=== PATIENT | male | born 1970 | race Caucasian/White ===

== ENCOUNTER → 2016-12-08 | Outpatient (CLI) | payer OTHER ==
[~2016-12-08] MED LIST: ADIPEX-P37.5 M2 PO; ALAVERT D-12 HO1 T12 PO; ALLOPURINOL1 POW; ALLOPURINOL300 MG PO; ALOGLIPTIN6.25 MG PO; AMOXICILLIN500 M3 PO; AMOXICILLIN500 MG PO; ANAPROX DS550 MG PO; ASPIR 8181 MG PO; ASPIRIN ENTERIC81 M1 PO; ATENOLOL25 MG PO; ATIVAN1 MG PO; AVPAK PRIMIDONE50 M1 PO; BACTRIM DS 8001 TAB PO; BACTROBAN OINT22 GM PO; BUSPAR15 MG PO; CATAFLAM50 MG PO; CELEXA20 MG PO; CELEXA40 MG PO; CLONAZEPAM1 MG PO; COLCHICINE0.5 MG PO; COLCHICINE0.6 MG PO; COLSALIDE IMPR0.6 MG PO; CYCLOBENZAPRINE10 MG PO; DAYPRO600 M1 PO; DEPO TESTOS200 MG/ML IM; DYRENIUM50 MG PO; FLEXERIL5 MG PO; FLONASE 0.05% 121 EA NAS; HYDROCODONE BIT1 T11 PO; IBUPROFEN PO; INDOCIN25 MG PO; INDOCIN50 MG PO; ISOSORBIDE30 MG PO; KEFLEX500 M1 PO; KEFLEX500 MG PO; LAMICTAL25 MG PO; LAMOTRIGINE25 M1 PO; LIPITOR10 MG PO; LIPITOR20 MG PO; LISINOPRIL20 MG PO; LOMOTIL 0.025 M1 TA1 PO; LOPRESSOR25 MG PO; LORAZEPAM0.5 MG PO; LOVAZA1 GM PO; Lopressor25 MG PO; MACROBID100 M1 PO; MEDROL DOSEPAK4 MG PO; METFORMIN HCL500 MG PO; METFORMIN1000 MG PO; METOPROLOL SR50 MG PO; MOTRIN800 MG PO; NAPROSYN500 MG PO; NEURONTIN600 MG PO; NITROSTAT0.4 MG SL; NKHM; NORCO 5-325 TA1 EACH PO; NORVASC10 MG PO; NORVASC2.5 MG PO; NORVASC5 MG PO; PERCOCET 325 MG1 TA7 PO; PHENERGAN25 M1 PO; PRAVACHOL40 MG PO; PRAVASTATIN SOD20 MG PO; PRAVASTATIN SOD40 MG PO; PREDNICOT20 MG PO; PREDNISONE PO; PRILOSEC20 MG PO; PROTONIX TR40 MG PO; PROTONIX40 MG PO; ROBAXIN500 MG PO; SERTRALINE HYDR50 MG PO; TAMIFLU 75MG CA75 MG PO; TOPROL XL50 MG PO; TORADOL10 MG PO; TOUJEO300 U/ML SC; TRAMADOL HCL50 MG PO; TRAZODONE50 MG PO; ULTRAM50 MG PO; VIBRAMYCIN100 MG PO; VICODIN 5/500 505 MG PO; VICODIN 500 MG-1 TAB PO; VICODIN ES 7501 TAB PO; VITAMIN D33000 UNIT PO; VOLTAREN50 M1 PO; ZANTAC 150150 MG PO; ZESTRIL,PRINIVI20 MG PO; ZITHROMAX Z PA250 MG PO; ZITHROMAX500 MG PO; ZOFRAN ODT4 MG SL; ZOLOFT50 MG PO; ZYLOPRIM300 MG PO; ZYRTEC10 MG PO
[2016-12-08 09:00] LABS: BASO # 0.1 10*3/uL (0.0-0.1); BASO % 0.5 % (0.0-1.0); EOS # 0.3 10*3/uL (0.0-0.4); EOS % 2.7 % (1.0-4.0); HEMATOCRIT 42.8 % (42.0-52.0); HEMOGLOBIN 15.2 g/dl (14.0-18.0); IG # 0.1 10*3/uL (0.0-0.1); LYMPH # 2.9 10*3/uL (1.3-4.4); LYMPH % 23.4 % (27.0-41.0); MEAN CELL VOLUME 84.8 fl (80.0-94.0); MEAN CORPUSCULAR HGB 30.1 pg (27.0-31.0); MEAN CORPUSCULAR HGB CONC 35.5 g/dl (33.0-37.0); MONO # 0.7 10*3/uL (0.1-1.0); MONO % 5.9 % (3.0-9.0); NEUT # 8.3 10*3/uL (2.3-7.9); NEUT % 66.9 % (47.0-73.0); PLATELET COUNT AUTOMATED 203 10*3/uL (130-400); RED BLOOD COUNT 5.05 10*6/uL (4.50-5.90); WHITE BLOOD COUNT 12.5 10*3/uL (4.8-10.8)
[2016-12-08 09:46] LABS: ALBUMIN 3.8 gm/dl (3.1-4.5); ALKALINE PHOSPHATASE 92 U/L (45-117); BILIRUBIN, TOTAL 0.6 mg/dl (0.2-1.0); BUN 14 mg/dl (7-24); CARBON DIOXIDE 29 mmol/L (21-32); CHLORIDE 95 mmol/L (98-107); CHOLESTEROL 149 mg/dL (<200); EST GLOM FILT AFRICAN AMERICAN > 60 ml/min; FREE T4 1.02 ng/dl (0.76-1.46); GLUCOSE 351 mg/dL (65-99); HDL CHOLESTEROL 25 mg/dl (40-60); POTASSIUM 3.7 mmol/L (3.5-5.1); SGOT/AST 21 IU/L (3-35); SGPT/ALT 49 U/L (12-78); SODIUM 134 mmol/L (136-145); TOTAL PROTEIN 8.1 gm/dL (6.4-8.2); TRIGLYCERIDES 836 mg/dl (<150)
[2016-12-08 09:59] LABS: FOLIC ACID 23.99 ng/mL (>5.38); VITAMIN D, 25-HYDROXY 13.4 ng/mL (30-100)
== END | disposition home or self-care (01) ==
LOC: LAB 08:42
PROVIDERS: Internal Medicine
DX: I10 Essential (primary) hypertension (principal); E78.5 Hyperlipidemia, unspecified; E55.9 Vitamin D deficiency, unspecified

== ENCOUNTER 2016-12-13 17:40 | Emergency (ER) | payer OTHER ==
[~2016-12-13] VITALS: Wt 113.4 kg
[~2016-12-13 17:40] MED LIST changes: -ADIPEX-P37.5 M2 PO; -ALAVERT D-12 HO1 T12 PO; -ALOGLIPTIN6.25 MG PO; -DEPO TESTOS200 MG/ML IM; -LIPITOR10 MG PO; -LOVAZA1 GM PO; -METFORMIN HCL500 MG PO; -METFORMIN1000 MG PO; -NORVASC5 MG PO; -TAMIFLU 75MG CA75 MG PO; -TOUJEO300 U/ML SC; -VITAMIN D33000 UNIT PO; -ZITHROMAX500 MG PO
[2016-12-13] MEDS ORDERED: METFORMIN HCL500 MG PO (20:21)
[2016-12-28] MEDS ORDERED: NORVASC5 MG PO (18:13)
[2016-12-28] MEDS ORDERED: METFORMIN1000 MG PO (18:15)
[2016-12-28] MEDS ORDERED: DEPO TESTOS200 MG/ML IM (18:19)
[2016-12-28] MEDS ORDERED: VITAMIN D33000 UNIT PO (18:20)
[2016-12-28] MEDS ORDERED: ADIPEX-P37.5 M2 PO (18:20)
[2016-12-28] MEDS ORDERED: TOUJEO300 U/ML SC (18:21)
[2016-12-28] MEDS ORDERED: LIPITOR10 MG PO (18:21)
[2016-12-28] MEDS ORDERED: LOVAZA1 GM PO ×2 (18:22→19:12)
[2016-12-28] MEDS ORDERED: ALOGLIPTIN6.25 MG PO (18:23)
[2016-12-31] MEDS ORDERED: TOUJEO300 U/ML SC ×2 (11:50→13:35)
[2016-12-31] MEDS ORDERED: TAMIFLU 75MG CA75 MG PO (11:50)
[2016-12-31] MEDS ORDERED: ALAVERT D-12 HO1 T12 PO (11:50)
[2016-12-31] MEDS ORDERED: ZITHROMAX500 MG PO (11:51)
== END 2016-12-13 20:28 | disposition home or self-care (01) ==
LOC: ED 17:40
DX: R73.9 Hyperglycemia, unspecified (principal); Z90.89 Acquired absence of other organs; Z79.82 Long term (current) use of aspirin; Z88.8 Allergy status to other drugs, medicaments and biological substances

== ENCOUNTER 2017-02-23 19:50 | Emergency (ER) | payer OTHER ==
[~2017-02-23] VITALS: Ht 165.1 cm; Wt 108.9 kg
[~2017-02-23 19:50] MED LIST changes: +ADIPEX-P37.5 M2 PO; +ALAVERT D-12 HO1 T12 PO; +ALOGLIPTIN6.25 MG PO; +DEPO TESTOS200 MG/ML IM; +LIPITOR10 MG PO; +LOVAZA1 GM PO; +METFORMIN HCL500 MG PO; +METFORMIN1000 MG PO; +NORVASC5 MG PO; +TAMIFLU 75MG CA75 MG PO; +TOUJEO300 U/ML SC; +VITAMIN D33000 UNIT PO; +ZITHROMAX500 MG PO
== END 2017-02-23 22:35 | disposition home or self-care (01) ==
LOC: ED 19:50
DX: S60.222A Contusion of left hand, initial encounter (principal); S00.83XA Contusion of other part of head, initial encounter; F17.200 Nicotine dependence, unspecified, uncomplicated; Z79.4 Long term (current) use of insulin; Z79.82 Long term (current) use of aspirin; W10.9XXA Fall (on) (from) unspecified stairs and steps, initial encounter; Y93.89 Activity, other specified; Y92.9 Unspecified place or not applicable; Y99.9 Unspecified external cause status

== ENCOUNTER 2017-07-19 13:57 | Emergency (ER) | payer OTHER ==
[~2017-07-19] VITALS: Wt 112.0 kg
[2017-07-19 15:09] LABS: BILIRUBIN NEGATIVE (NEGATIVE); BLOOD NEGATIVE (NEGATIVE); CLARITY CLEAR (CLEAR); COLOR YELLOW (YELLOW); GLUCOSE NEGATIVE (NEGATIVE); KETONE NEGATIVE (NEGATIVE); LEUKO ESTERASE NEGATIVE (NEGATIVE); NITRITE NEGATIVE (NEGATIVE); SPECIFIC GRAVITY <= 1.005 (1.005-1.030); UROBILINOGEN 0.2 E.U./dl (0.2-1.0)
[2017-07-19 15:20] LABS: BACTERIA TRACE; EPITHELIAL CELLS 0-2; RBC 0-2 rbc/hpf (0-2); WBC 0-2 wbc/hpf (0-5)
== END 2017-07-19 17:10 | disposition home or self-care (01) ==
LOC: ED 13:57
PROVIDERS: Nurse Practitioner Family
DX: K42.9 Umbilical hernia without obstruction or gangrene (principal); I10 Essential (primary) hypertension; I25.10 Atherosclerotic heart disease of native coronary artery without angina pectoris; E11.9 Type 2 diabetes mellitus without complications; I25.2 Old myocardial infarction; E78.5 Hyperlipidemia, unspecified; M10.9 Gout, unspecified; Z79.899 Other long term (current) drug therapy

== ENCOUNTER 2017-08-24 20:32 | Inpatient (IN) | payer OTHER ==
[~2017-08-24] VITALS: Ht 165.1 cm; Wt 120.1 kg
--- NOTE | ~2017-08-24 | ST ---
[place], [place] EXERCISE STRESS TEST REPORT NAME: HARJINDER DICK JR UNIT #: [id number] ROOM: 508 DOCTOR: JOSEFINA DARNELL MD BIRTHDATE: [birth year] DOS: 08/25/2017 THE LEXISCAN PORTION OF THE LEXISCAN CARDIOLITE. INTERPRETATION: Baseline cardiogram, sinus rhythm with nonspecific ST-T changes, 0.4 mg of Lexiscan, duration of 10 seconds. With Lexiscan, no new EKG changes. No chest discomfort. Blood pressure and heart rate normal. Nuclear images will be reported separately. JOSEFINA DARNELL MD CM:STRESS:EXERCISE STRESS TEST REPORT [id number] JOSEFINA DARNELL MD
--- NOTE | ~2017-08-24 | CON ---
[place], [place] REPORT OF CONSULTATION NAME: HARJINDER DICK JR UNIT #: [id number] ROOM: 508 DOCTOR: JOSEFINA DARNELL MD BIRTHDATE: [birth year] DOS: HISTORY OF PRESENT ILLNESS: The patient is a 47-year-old gentleman admitted with left-sided precordial chest discomfort radiating to the jaw area. The patient has a history of myocardial infarction many years ago resulting in a heart catheterization without any interventions; no acute EKG changes suggesting of myocardial injury or infarction. PAST MEDICAL HISTORY: Anxiety, diabetes, depression, hypertension, history of myocardial infarction, panic disorder, posttraumatic stress disorder. SOCIAL HISTORY: Denies any alcohol or tobacco abuse, but does chew tobacco. FAMILY HISTORY: Positive for coronary artery disease. ALLERGIES: None. HOME MEDICATIONS: Aspirin, atorvastatin, insulin, isosorbide, metoprolol, and pravastatin. REVIEW OF SYSTEMS: CONSTITUTIONAL: No fever, no chills. HEENT: No visual disturbances or hearing problems. CARDIOVASCULAR: As per HPI. GASTROINTESTINAL: No nausea, no vomiting. GENITOURINARY: No dysuria, hematuria. NEUROLOGICALLY: Stable. PHYSICAL EXAMINATION: VITAL SIGNS: Blood pressure 120/60. HEENT: Unremarkable. NECK: Supple, no JVD. LUNGS: Clear. HEART: Sounds are regular. ABDOMEN: Soft, nontender. NEUROLOGICAL: Stable. LABORATORY DATA: Electrolytes are normal. Liver functions are normal. Hemoglobin, hematocrit within normal limits. IMPRESSION: Atypical chest discomfort, tachycardia, leukocytosis, history of coronary artery disease, hypertension. RECOMMENDATIONS: Consideration should be given for a stress test. Continue the present medications. Monitor the heart rate and we will follow up. [place], [place] REPORT OF CONSULTATION NAME: HARJINDER DICK JR UNIT #: [id number] ROOM: 508 DOCTOR: JOSEFINA DARNELL MD BIRTHDATE: [birth year] JOSEFINA DARNELL MD CM:CONSTR:REPORT OF CONSULTATION 0625 08/25/17 2147 interface
[~2017-08-24 20:32] MED LIST changes: +TOUJEO SOL300 UNIT/1 SQ
[2017-08-24 20:50] LABS: BASO % 0.3 % (0.0-1.0); EOS # 0.4 10*3/uL (0.0-0.4); EOS % 2.8 % (1.0-4.0); HEMATOCRIT 38.6 % (42.0-52.0); LYMPH # 4.3 10*3/uL (1.3-4.4); LYMPH % 34.4 % (27.0-41.0); MEAN CELL VOLUME 89.1 fl (80.0-94.0); MEAN CORPUSCULAR HGB CONC 33.7 g/dl (33.0-37.0); MEAN PLATELET VOLUME 10.9 fl (9.6-12.3); MONO % 7.8 % (3.0-9.0); NEUT # 6.8 10*3/uL (2.3-7.9); NEUT % 54.4 % (47.0-73.0); PLATELET COUNT AUTOMATED 215 10*3/uL (130-400); RED BLOOD COUNT 4.33 10*6/uL (4.50-5.90); RED CELL DISTRI WIDTH 13.4 % (0-14.5); WHITE BLOOD COUNT 12.6 10*3/uL (4.8-10.8)
[2017-08-24 21:02] LABS: ACT PARTIAL THROMBO TIME 23.7 SECONDS (20.8-31.5)
[2017-08-24 21:07] LABS: ALBUMIN 3.6 gm/dl (3.1-4.5); ALKALINE PHOSPHATASE 80 U/L (45-117); BUN 14 mg/dl (7-24); CHLORIDE 101 mmol/L (98-107); CREATININE 1.36 mg/dL (0.70-1.30); MAGNESIUM 1.9 mg/dL (1.5-2.1); POTASSIUM 4.1 mmol/L (3.5-5.1); SGOT/AST 21 IU/L (3-35); SGPT/ALT 37 U/L (12-78); SODIUM 138 mmol/L (136-145); TOTAL PROTEIN 7.4 gm/dL (6.4-8.2)
[2017-08-24 21:12] LABS: TROPONIN I < 0.015 ng/ml (<0.045)
[2017-08-24 21:13] VITALS: BP 126/72
[2017-08-24 21:30] VITALS: BP 114/68
[2017-08-24 22:00] VITALS: BP 120/65
[2017-08-24 23:00] VITALS: BP 118/66
--- NOTE | 2017-08-24 23:00 | NUR ---
UNABLE TO COMPLETE MED REC. PT DOES NOT HAVE A LIST AND STATES HE DOES NOT KNOW ALL OF HIS MEDICATIONS. PT USES [facility]
--- NOTE | 2017-08-24 23:00 | NUR ---
A 47, admitted to 5E, under the services of FREDERICK Tong MD with a diagnosis of CHEST PAIN. Chief complaint is CHEST PAIN. Patient arrived via BED from ER. Monitor applied. Initial assessment completed. Vital signs taken and recorded. FREDERICK TONG MD notified of admission to the unit. Orders received. See assessment for past medical history, medications and allergies. Patient and/or family oriented to unit. visitation policy reviewed. Clothing/patient valuable form completed. TRINA CHATMAN
--- NOTE | 2017-08-24 23:15 | NUR ---
BERNARDO ALVAREZ TO BE CALLED IN AM TO [facility] HOME MED LIST. PATIENT UNSURE OF HOME MEDS AND DOSAGES.
[2017-08-25] VITALS: BP 120/74
[2017-08-25 03:11] LABS: BASO # 0.1 10*3/uL (0.0-0.1); BASO % 0.5 % (0.0-1.0); EOS # 0.3 10*3/uL (0.0-0.4); HEMATOCRIT 38.2 % (42.0-52.0); LYMPH # 4.2 10*3/uL (1.3-4.4); LYMPH % 39.5 % (27.0-41.0); MEAN CORPUSCULAR HGB 30.3 pg (27.0-31.0); MEAN PLATELET VOLUME 10.9 fl (9.6-12.3); MONO # 0.7 10*3/uL (0.1-1.0); MONO % 6.8 % (3.0-9.0); NEUT # 5.3 10*3/uL (2.3-7.9); NEUT % 49.9 % (47.0-73.0); PLATELET COUNT AUTOMATED 208 10*3/uL (130-400); RED BLOOD COUNT 4.29 10*6/uL (4.50-5.90); RED CELL DISTRI WIDTH 13.3 % (0-14.5); WHITE BLOOD COUNT 10.5 10*3/uL (4.8-10.8)
[2017-08-25 03:23] LABS: BUN 14 mg/dl (7-24); CHLORIDE 103 mmol/L (98-107); CREATININE 1.33 mg/dL (0.70-1.30); POTASSIUM 3.9 mmol/L (3.5-5.1); SODIUM 140 mmol/L (136-145)
[2017-08-25 03:26] LABS: ACT PARTIAL THROMBO TIME 23.9 SECONDS (20.8-31.5)
[2017-08-25 03:27] LABS: CHOLESTEROL 164 mg/dL (<200); HDL CHOLESTEROL 22 mg/dl (40-60); LDL CHOLESTEROL 67 mg/dL (9-159); TRIGLYCERIDES 375 mg/dl (<150); VLDL CHOLESTEROL 75 mg/dL (6-40)
[2017-08-25 03:48] LABS: VITAMIN D, 25-HYDROXY 28.6 ng/mL (30-100)
--- NOTE | 2017-08-25 06:30 | NUR ---
PATIENT LEFT FLOOR FOR STRESS TEST.
--- NOTE | 2017-08-25 06:46 | NUR ---
INFORMED SIGNED CONSENT OBTAINED FOR LEXISCAN STRESS TEST WITH DR BORREGO. RESTING EKG NSR HR 72 BP 124/84. PULSE OX 96% LUNGS CLEAR. PT COMPLETED ONE MINUTE OF A LEXISCAN PROTOCOL WITH PT RECEIVING LEXISCAN 0.4MG IV OVER 10 SEC[address] NO ARRHTHMIAS OR ST CHANGES. LAST RECOVERY HR OF 79 BP 128/76. PT IN STABLE CONDITION, AWAITING NUCLEAR IMAGES.
[2017-08-25 08:00] VITALS: BP 127/72
--- NOTE | 2017-08-25 08:30 | NUR ---
Animal Skinner in to talk to patient. Patient states lives at HOME with HIS . There are 15 steps in the home. Physician: DR JOHNSON [facility]: NONE Patient's level of ADLs: INDEPENDENT Patient has working utilities: YES DME: BIPAP--NO O2 OR NEB Follow-up physician's appointment after d/c: PREFERS TO MAKE OWN APPT Does patient want to access PORTAL?: Discharge plan HOME. LAURENT COBURN
[2017-08-25] MEDS ORDERED: VITAMIN D35000 UNIT PO (09:57)
[2017-08-25] MEDS ORDERED: VENTOLIN HFA INH (09:59)
[2017-08-25] MEDS ORDERED: REXULTI2 MG PO (10:00)
[2017-08-25] MEDS ORDERED: DEXTROAMPH SACC30 MG PO (10:01)
[2017-08-25] MEDS ORDERED: LAMICTAL100 MG PO (10:01)
[2017-08-25] MEDS ORDERED: ALLOPURINOL300 MG PO (10:03)
[2017-08-25] MEDS ORDERED: ADDERALL XR 3030 MG PO (10:35)
[2017-08-25 12:00] VITALS: BP 145/78
--- NOTE | 2017-08-25 14:25 | NUR ---
Discharge instructions reviewed with patient/family. Patient receptive and verbalizes understanding. Follow-up care arranged. Written instructions given to patient/family. Heplock removed. Patient ambulatory off floor. WILMAR LUEVANO
== END 2017-08-25 14:25 | disposition home or self-care (01) | DRG 391 ==
LOC: ED 20:32 → 5E 21:44 → EDHOLD 21:44 → 5E 22:17
PROVIDERS: Internal Medicine; Student in an Organized Health Care Education/Training Program; ADMIT Internal Medicine
PROC: 4A02XM4 Measurement of Cardiac Total Activity, External Approach (ICD-10-PCS; principal; 2017-08-25)
PROC: 3E073KZ Introduction of Other Diagnostic Substance into Coronary Artery, Percutaneous Approach (ICD-10-PCS; 2017-08-25)
DX: K21.9 Gastro-esophageal reflux disease without esophagitis (principal); N17.0 Acute kidney failure with tubular necrosis; R65.10 Systemic inflammatory response syndrome (SIRS) of non-infectious origin without acute organ dysfunction; I25.110 Atherosclerotic heart disease of native coronary artery with unstable angina pectoris; Z68.41 Body mass index [BMI] 40.0-44.9, adult; E11.9 Type 2 diabetes mellitus without complications; I10 Essential (primary) hypertension; E78.5 Hyperlipidemia, unspecified; E66.9 Obesity, unspecified; F41.9 Anxiety disorder, unspecified; F32.9 Major depressive disorder, single episode, unspecified; F43.10 Post-traumatic stress disorder, unspecified; F17.220 Nicotine dependence, chewing tobacco, uncomplicated; Z79.82 Long term (current) use of aspirin; Z79.4 Long term (current) use of insulin; Z79.899 Other long term (current) drug therapy; I25.2 Old myocardial infarction; Z95.818 Presence of other cardiac implants and grafts; Z82.49 Family history of ischemic heart disease and other diseases of the circulatory system

== ENCOUNTER 2017-11-27 19:06 | Emergency (ER) | payer OTHER ==
[~2017-11-27] VITALS: Ht 165.1 cm; Wt 115.7 kg
[~2017-11-27 19:06] MED LIST changes: +ADDERALL XR 3030 MG PO; +DEXTROAMPH SACC30 MG PO; +LAMICTAL100 MG PO; +REXULTI2 MG PO; +VENTOLIN HFA INH; +VITAMIN D35000 UNIT PO
[2017-11-27] MEDS ORDERED: ANAPROX DS550 MG PO (19:47)
== END 2017-11-27 20:02 | disposition home or self-care (01) ==
LOC: ED 19:06
DX: M54.5 Low back pain (principal); G89.29 Other chronic pain; F17.200 Nicotine dependence, unspecified, uncomplicated; Z90.89 Acquired absence of other organs; Z79.899 Other long term (current) drug therapy; Z79.82 Long term (current) use of aspirin

== ENCOUNTER → 2017-12-05 | Outpatient (CLI) | payer OTHER | END | disposition home or self-care (01) | LOC: RAD 11:25 | DX: M54.5 Low back pain (principal); R06.02 Shortness of breath; J45.909 Unspecified asthma, uncomplicated; Z86.73 Personal history of transient ischemic attack (TIA), and cerebral infarction without residual deficits; E11.9 Type 2 diabetes mellitus without complications; I10 Essential (primary) hypertension ==

== ENCOUNTER 2017-12-20 15:05 | Emergency (ER) | payer OTHER ==
[~2017-12-20] VITALS: Ht 165.1 cm; Wt 113.4 kg
[2017-12-20] MEDS ORDERED: CYCLOBENZAPRINE10 MG PO (16:37)
== END 2017-12-20 16:37 | disposition home or self-care (01) ==
LOC: ED 15:05
DX: M54.5 Low back pain (principal); Z79.899 Other long term (current) drug therapy; Z79.4 Long term (current) use of insulin; Z90.89 Acquired absence of other organs

== ENCOUNTER 2017-12-26 10:30 | Emergency (ER) | payer OTHER ==
[~2017-12-26] VITALS: Ht 165.1 cm; Wt 113.4 kg
== END 2017-12-26 11:57 | disposition home or self-care (01) ==
LOC: ED 10:30
DX: R20.0 Anesthesia of skin (principal); F17.200 Nicotine dependence, unspecified, uncomplicated; I25.10 Atherosclerotic heart disease of native coronary artery without angina pectoris; E11.9 Type 2 diabetes mellitus without complications; M10.9 Gout, unspecified; I25.2 Old myocardial infarction; I10 Essential (primary) hypertension; E78.5 Hyperlipidemia, unspecified; E66.9 Obesity, unspecified; Z90.89 Acquired absence of other organs; Z79.899 Other long term (current) drug therapy; Z79.4 Long term (current) use of insulin; Z79.82 Long term (current) use of aspirin

== ENCOUNTER 2018-02-26 20:37 | Inpatient (IN) | payer OTHER ==
[~2018-02-26] VITALS: Ht 165.1 cm; Wt 113.5 kg
[2018-02-26 20:39] VITALS: BP 147/106
[2018-02-26 21:14] LABS: BASO # 0.1 10*3/uL (0.0-0.1); BASO % 0.5 % (0.0-1.0); EOS # 0.5 10*3/uL (0.0-0.4); EOS % 4.2 % (1.0-4.0); HEMATOCRIT 40.8 % (42.0-52.0); HEMOGLOBIN 14.8 g/dl (14.0-18.0); LYMPH # 3.9 10*3/uL (1.3-4.4); LYMPH % 30.3 % (27.0-41.0); MEAN CELL VOLUME 83.1 fl (80.0-94.0); MEAN CORPUSCULAR HGB 30.1 pg (27.0-31.0); MEAN CORPUSCULAR HGB CONC 36.3 g/dl (33.0-37.0); MEAN PLATELET VOLUME 11.4 fl (9.6-12.3); MONO # 0.8 10*3/uL (0.1-1.0); NEUT # 7.6 10*3/uL (2.3-7.9); NEUT % 58.5 % (47.0-73.0); PLATELET COUNT AUTOMATED 238 10*3/uL (130-400); RED BLOOD COUNT 4.91 10*6/uL (4.50-5.90); RED CELL DISTRI WIDTH 12.8 % (0-14.5); WHITE BLOOD COUNT 12.9 10*3/uL (4.8-10.8)
[2018-02-26 21:30] LABS: ALBUMIN 3.5 gm/dl (3.1-4.5); ALKALINE PHOSPHATASE 96 U/L (45-117); BUN 10 mg/dl (7-24); CHLORIDE 98 mmol/L (98-107); CREATININE 1.12 mg/dL (0.70-1.30); LIPASE 174 U/L (73-393); POTASSIUM 3.6 mmol/L (3.5-5.1); SGOT/AST 19 IU/L (3-35); SGPT/ALT 33 U/L (12-78); SODIUM 132 mmol/L (136-145); TOTAL PROTEIN 7.5 gm/dL (6.4-8.2)
[2018-02-26 21:32] LABS: TROPONIN I < 0.015 ng/ml (<0.045)
[2018-02-26 21:35] VITALS: BP 152/88
[2018-02-26 22:12] VITALS: BP 144/86
[2018-02-26 23:18] VITALS: BP 129/73
[2018-02-26 23:19] LABS: BILIRUBIN NEGATIVE (NEGATIVE); BLOOD NEGATIVE (NEGATIVE); CLARITY CLEAR (CLEAR); COLOR YELLOW (YELLOW); GLUCOSE 3+ (NEGATIVE); KETONE NEGATIVE (NEGATIVE); LEUKO ESTERASE NEGATIVE (NEGATIVE); NITRITE NEGATIVE (NEGATIVE); SPECIFIC GRAVITY <= 1.005 (1.005-1.030); UROBILINOGEN 0.2 E.U./dl (0.2-1.0)
[2018-02-26 23:29] LABS: EPITHELIAL CELLS 0-2
[2018-02-26 23:47] VITALS: BP 150/98
[2018-02-27] VITALS (7 sets, daily range): BP systolic 125–160; BP diastolic 62–91
[2018-02-27] MEDS ORDERED: HUMALOG100 UNIT/1 SC (01:51)
[2018-02-27 06:41] LABS: BASO # 0.1 10*3/uL (0.0-0.1); BASO % 0.5 % (0.0-1.0); EOS # 0.5 10*3/uL (0.0-0.4); EOS % 4.3 % (1.0-4.0); HEMATOCRIT 39.2 % (42.0-52.0); HEMOGLOBIN 13.8 g/dl (14.0-18.0); LYMPH # 3.7 10*3/uL (1.3-4.4); LYMPH % 33.1 % (27.0-41.0); MEAN CELL VOLUME 84.1 fl (80.0-94.0); MEAN CORPUSCULAR HGB 29.6 pg (27.0-31.0); MEAN CORPUSCULAR HGB CONC 35.2 g/dl (33.0-37.0); MEAN PLATELET VOLUME 11.5 fl (9.6-12.3); MONO # 0.7 10*3/uL (0.1-1.0); MONO % 5.9 % (3.0-9.0); NEUT # 6.2 10*3/uL (2.3-7.9); NEUT % 55.6 % (47.0-73.0); PLATELET COUNT AUTOMATED 210 10*3/uL (130-400); RED BLOOD COUNT 4.66 10*6/uL (4.50-5.90); RED CELL DISTRI WIDTH 12.9 % (0-14.5); WHITE BLOOD COUNT 11.1 10*3/uL (4.8-10.8)
[2018-02-27 06:53] LABS: ALBUMIN 3.2 gm/dl (3.1-4.5); ALKALINE PHOSPHATASE 87 U/L (45-117); BUN 9 mg/dl (7-24); CHLORIDE 103 mmol/L (98-107); CHOLESTEROL 116 mg/dL (<200); CREATININE 1.04 mg/dL (0.70-1.30); HDL CHOLESTEROL 18 mg/dl (40-60); PHOSPHOROUS 3.8 mg/dL (2.5-4.9); POTASSIUM 3.5 mmol/L (3.5-5.1); SGOT/AST 14 IU/L (3-35); SGPT/ALT 31 U/L (12-78); SODIUM 138 mmol/L (136-145); TOTAL PROTEIN 6.8 gm/dL (6.4-8.2); TRIGLYCERIDES 517 mg/dl (<150)
[2018-02-27 07:12] LABS: INTERNATIONAL NORM RATIO 0.9 (2.0-3.5)
[2018-02-28] VITALS: BP 146/90
[2018-02-28 06:55] LABS: BASO # 0.1 10*3/uL (0.0-0.1); BASO % 0.5 % (0.0-1.0); EOS # 0.5 10*3/uL (0.0-0.4); EOS % 4.2 % (1.0-4.0); HEMATOCRIT 41.5 % (42.0-52.0); HEMOGLOBIN 14.3 g/dl (14.0-18.0); LYMPH # 3.3 10*3/uL (1.3-4.4); LYMPH % 28.1 % (27.0-41.0); MEAN CELL VOLUME 86.3 fl (80.0-94.0); MEAN CORPUSCULAR HGB 29.7 pg (27.0-31.0); MEAN CORPUSCULAR HGB CONC 34.5 g/dl (33.0-37.0); MEAN PLATELET VOLUME 11.2 fl (9.6-12.3); MONO # 0.7 10*3/uL (0.1-1.0); NEUT # 7.2 10*3/uL (2.3-7.9); NEUT % 60.9 % (47.0-73.0); PLATELET COUNT AUTOMATED 212 10*3/uL (130-400); RED BLOOD COUNT 4.81 10*6/uL (4.50-5.90); RED CELL DISTRI WIDTH 13.2 % (0-14.5); WHITE BLOOD COUNT 11.8 10*3/uL (4.8-10.8)
[2018-02-28 07:14] LABS: ALBUMIN 3.4 gm/dl (3.1-4.5); ALKALINE PHOSPHATASE 91 U/L (45-117); BUN 10 mg/dl (7-24); CHLORIDE 101 mmol/L (98-107); CREATININE 1.08 mg/dL (0.70-1.30); POTASSIUM 3.6 mmol/L (3.5-5.1); SGOT/AST 23 IU/L (3-35); SODIUM 136 mmol/L (136-145); TOTAL PROTEIN 7.1 gm/dL (6.4-8.2)
[2018-02-28 07:15] LABS: SGPT/ALT 30 U/L (12-78)
[2018-02-28 08:00] VITALS: BP 126/75
[2018-02-28 12:00] VITALS: BP 145/94
[2018-02-28] MEDS ORDERED: HUMALOG100 UNIT/1 SC (13:34)
== END 2018-02-28 14:06 | disposition home or self-care (01) | DRG 638 ==
LOC: ED 20:37 → EDHOLD 23:39 → 5E 23:39
PROVIDERS: Emergency Medicine Emergency Medical Services; Hospitalist; Internal Medicine
DX: E11.65 Type 2 diabetes mellitus with hyperglycemia (principal); E87.2 Acidosis; R65.10 Systemic inflammatory response syndrome (SIRS) of non-infectious origin without acute organ dysfunction; G60.0 Hereditary motor and sensory neuropathy; D64.9 Anemia, unspecified; M10.9 Gout, unspecified; F41.0 Panic disorder [episodic paroxysmal anxiety]; F43.10 Post-traumatic stress disorder, unspecified; F32.9 Major depressive disorder, single episode, unspecified; I10 Essential (primary) hypertension; E66.9 Obesity, unspecified; E78.5 Hyperlipidemia, unspecified; F41.9 Anxiety disorder, unspecified; E78.1 Pure hyperglyceridemia; R74.8 Abnormal levels of other serum enzymes; E55.9 Vitamin D deficiency, unspecified; F17.220 Nicotine dependence, chewing tobacco, uncomplicated; I25.10 Atherosclerotic heart disease of native coronary artery without angina pectoris; I25.2 Old myocardial infarction; Z82.49 Family history of ischemic heart disease and other diseases of the circulatory system; Z79.899 Other long term (current) drug therapy; Z79.82 Long term (current) use of aspirin

== ENCOUNTER 2018-03-09 11:44 | Emergency (ER) | payer OTHER ==
[~2018-03-09] VITALS: Ht 165.1 cm; Wt 113.4 kg
[~2018-03-09 11:44] MED LIST changes: +HUMALOG100 UNIT/1 SC
[2018-03-09] MEDS ORDERED: ZYRTEC10 MG PO (11:50)
[2018-03-09] MEDS ORDERED: FLONASE ALLERG9.9 ML NAS (11:50)
[2018-03-09] MEDS ORDERED: AMOXICILLIN500 M2 PO (11:50)
== END 2018-03-09 11:58 | disposition home or self-care (01) ==
LOC: ED 11:44
DX: J01.90 Acute sinusitis, unspecified (principal); E11.9 Type 2 diabetes mellitus without complications; I10 Essential (primary) hypertension; F17.200 Nicotine dependence, unspecified, uncomplicated; Z79.899 Other long term (current) drug therapy; Z79.82 Long term (current) use of aspirin; Z90.89 Acquired absence of other organs; Z79.4 Long term (current) use of insulin

== ENCOUNTER → 2018-06-26 | Outpatient (CLI) | payer OTHER ==
[~2018-06-26] MED LIST changes: +AMOXICILLIN500 M2 PO; +FLONASE ALLERG9.9 ML NAS
[2018-06-26 11:44] LABS: BASO % 0.5 % (0.0-1.0); EOS # 0.3 10*3/uL (0.0-0.4); HEMATOCRIT 40.7 % (42.0-52.0); LYMPH # 2.1 10*3/uL (1.3-4.4); LYMPH % 25.5 % (27.0-41.0); MEAN CELL VOLUME 85.9 fl (80.0-94.0); MEAN CORPUSCULAR HGB 29.5 pg (27.0-31.0); MEAN CORPUSCULAR HGB CONC 34.4 g/dl (33.0-37.0); MEAN PLATELET VOLUME 11.5 fl (9.6-12.3); MONO # 0.6 10*3/uL (0.1-1.0); MONO % 6.9 % (3.0-9.0); NEUT # 5.4 10*3/uL (2.3-7.9); NEUT % 63.6 % (47.0-73.0); PLATELET COUNT AUTOMATED 220 10*3/uL (130-400); RED BLOOD COUNT 4.74 10*6/uL (4.50-5.90); RED CELL DISTRI WIDTH 13.6 % (0-14.5); WHITE BLOOD COUNT 8.4 10*3/uL (4.8-10.8)
[2018-06-26 12:14] LABS: ALBUMIN 3.6 gm/dl (3.1-4.5); ALKALINE PHOSPHATASE 80 U/L (45-117); BUN 10 mg/dl (7-24); CHLORIDE 106 mmol/L (98-107); CREATININE 1.04 mg/dL (0.70-1.30); FREE T4 0.82 ng/dl (0.76-1.46); POTASSIUM 3.5 mmol/L (3.5-5.1); SGOT/AST 17 IU/L (3-35); SGPT/ALT 36 U/L (12-78); SODIUM 139 mmol/L (136-145); TOTAL PROTEIN 7.4 gm/dL (6.4-8.2)
[2018-06-27 09:05] LABS: RHEUMATOID ARTHRITIS FACTOR <10.0 IU/mL (0.0-13.9)
[2018-06-27 14:08] LABS: ANTI-DSDNA ANTIBODIES 096339 <1 IU/mL (0-9)
== END | disposition home or self-care (01) ==
LOC: LAB 10:45
PROVIDERS: Internal Medicine
DX: R53.83 Other fatigue (principal)

== ENCOUNTER 2018-12-23 13:01 | Emergency (ER) | payer OTHER ==
[~2018-12-23] VITALS: Ht 165.1 cm; Wt 113.4 kg
[2018-12-23 13:28] LABS: BASO % 0.4 % (0.0-1.0); EOS # 0.4 10*3/uL (0.0-0.4); EOS % 4.1 % (1.0-4.0); HEMATOCRIT 45.6 % (42.0-52.0); HEMOGLOBIN 16.2 g/dl (14.0-18.0); LYMPH # 2.1 10*3/uL (1.3-4.4); LYMPH % 20.9 % (27.0-41.0); MEAN CELL VOLUME 83.5 fl (80.0-94.0); MEAN CORPUSCULAR HGB 29.7 pg (27.0-31.0); MEAN CORPUSCULAR HGB CONC 35.5 g/dl (33.0-37.0); MEAN PLATELET VOLUME 11.6 fl (9.6-12.3); MONO # 0.9 10*3/uL (0.1-1.0); MONO % 8.6 % (3.0-9.0); NEUT # 6.7 10*3/uL (2.3-7.9); NEUT % 65.6 % (47.0-73.0); PLATELET COUNT AUTOMATED 286 10*3/uL (130-400); RED BLOOD COUNT 5.46 10*6/uL (4.50-5.90); RED CELL DISTRI WIDTH 13.4 % (0-14.5); WHITE BLOOD COUNT 10.3 10*3/uL (4.8-10.8)
[2018-12-23 13:44] LABS: ALBUMIN 3.7 gm/dl (3.1-4.5); ALKALINE PHOSPHATASE 102 U/L (45-117); BUN 8 mg/dl (7-24); CHLORIDE 100 mmol/L (98-107); CREATININE 1.11 mg/dL (0.70-1.30); POTASSIUM 2.9 mmol/L (3.5-5.1); SGOT/AST 16 IU/L (3-35); SGPT/ALT 38 U/L (12-78); SODIUM 136 mmol/L (136-145); TOTAL PROTEIN 8.1 gm/dL (6.4-8.2)
[2018-12-23] MEDS ORDERED: MAGNESIUM400 M1 PO (14:46)
[2018-12-23] MEDS ORDERED: K-TAB20 MEQ PO (14:46)
[2018-12-23] MEDS ORDERED: MUCINEX DM 30/61 TAB PO (14:47)
[2019-05-05] MEDS ORDERED: ROBAXIN500 M1 PO (13:39)
[2019-05-05] MEDS ORDERED: IBU800 MG PO (13:39)
== END 2018-12-23 14:55 | disposition home or self-care (01) ==
LOC: ED 13:01
PROVIDERS: Emergency Medicine
DX: J06.9 Acute upper respiratory infection, unspecified (principal); E87.6 Hypokalemia; E83.42 Hypomagnesemia; I25.10 Atherosclerotic heart disease of native coronary artery without angina pectoris; I25.2 Old myocardial infarction; E78.5 Hyperlipidemia, unspecified; M10.9 Gout, unspecified; E11.9 Type 2 diabetes mellitus without complications; I10 Essential (primary) hypertension; E66.9 Obesity, unspecified; Z79.899 Other long term (current) drug therapy

== ENCOUNTER 2019-01-03 11:27 | Emergency (ER) | payer OTHER ==
[~2019-01-03] VITALS: Ht 165.1 cm; Wt 111.1 kg
[~2019-01-03 11:27] MED LIST changes: +K-TAB20 MEQ PO; +MAGNESIUM400 M1 PO; +MUCINEX DM 30/61 TAB PO
[2019-01-03] MEDS ORDERED: PREDNISONE50 MG PO (13:03)
[2019-01-03] MEDS ORDERED: CYCLOBENZAPRINE10 MG PO (13:03)
[2019-01-03] MEDS ORDERED: NAPROSYN500 MG PO (13:03)
[2019-05-05] MEDS ORDERED: IBU800 MG PO (13:39)
[2019-05-05] MEDS ORDERED: ROBAXIN500 M1 PO (13:39)
== END 2019-01-03 13:04 | disposition home or self-care (01) ==
LOC: ED 11:27
DX: M54.5 Low back pain (principal); M62.830 Muscle spasm of back; G89.29 Other chronic pain; I10 Essential (primary) hypertension; I25.2 Old myocardial infarction; F17.200 Nicotine dependence, unspecified, uncomplicated; Z79.899 Other long term (current) drug therapy; Z79.2 Long term (current) use of antibiotics; Z79.82 Long term (current) use of aspirin

== ENCOUNTER 2019-12-03 16:59 | Emergency (ER) | payer OTHER ==
[~2019-12-03] VITALS: Ht 165.1 cm; Wt 111.1 kg
[~2019-12-03 16:59] MED LIST changes: +IBU800 MG PO; +PREDNISONE50 MG PO; +ROBAXIN500 M1 PO
[2019-12-03 18:07] LABS: BASO # 0.1 10*3/uL (0.0-0.1); BASO % 0.6 % (0.0-1.0); EOS # 0.2 10*3/uL (0.0-0.4); EOS % 2.7 % (1.0-4.0); HEMATOCRIT 38.7 % (42.0-52.0); HEMOGLOBIN 13.8 g/dl (14.0-18.0); LYMPH # 2.6 10*3/uL (1.3-4.4); LYMPH % 29.8 % (27.0-41.0); MEAN CELL VOLUME 82.9 fl (80.0-94.0); MEAN CORPUSCULAR HGB 29.6 pg (27.0-31.0); MEAN CORPUSCULAR HGB CONC 35.7 g/dl (33.0-37.0); MEAN PLATELET VOLUME 11.6 fl (9.6-12.3); MONO # 0.6 10*3/uL (0.1-1.0); MONO % 6.5 % (3.0-9.0); NEUT # 5.2 10*3/uL (2.3-7.9); NEUT % 60.1 % (47.0-73.0); PLATELET COUNT AUTOMATED 211 10*3/uL (130-400); RED BLOOD COUNT 4.67 10*6/uL (4.50-5.90); RED CELL DISTRI WIDTH 12.3 % (0-14.5); WHITE BLOOD COUNT 8.6 10*3/uL (4.8-10.8)
[2019-12-03 18:17] LABS: INTERNATIONAL NORM RATIO 0.9 (2.0-3.5)
[2019-12-03 18:23] LABS: ALBUMIN 3.5 gm/dl (3.1-4.5); ALKALINE PHOSPHATASE 80 U/L (45-117); BUN 11 mg/dl (7-24); CHLORIDE 98 mmol/L (98-107); CREATININE 1.04 mg/dL (0.70-1.30); LIPASE 133 U/L (73-393); POTASSIUM 3.2 mmol/L (3.5-5.1); SGOT/AST 14 IU/L (3-35); SGPT/ALT 32 U/L (12-78); SODIUM 134 mmol/L (136-145); TOTAL PROTEIN 6.8 gm/dL (6.4-8.2)
[2019-12-03 18:24] LABS: TROPONIN I < 0.015 ng/ml (<0.045)
[2019-12-03 19:08] LABS: BILIRUBIN NEGATIVE (NEGATIVE); BLOOD NEGATIVE (NEGATIVE); CLARITY CLEAR (CLEAR); COLOR YELLOW (YELLOW); GLUCOSE 3+ (NEGATIVE); KETONE NEGATIVE (NEGATIVE); LEUKO ESTERASE NEGATIVE (NEGATIVE); NITRITE NEGATIVE (NEGATIVE); SPECIFIC GRAVITY 1.015 (1.005-1.030); UROBILINOGEN 0.2 E.U./dl (0.2-1.0)
[2019-12-03 19:19] LABS: EPITHELIAL CELLS 0-2
== END 2019-12-03 19:44 | disposition home or self-care (01) ==
LOC: ED 16:59
PROVIDERS: Physician Assistant
DX: E11.40 Type 2 diabetes mellitus with diabetic neuropathy, unspecified (principal); H53.8 Other visual disturbances; R51 Headache; I25.2 Old myocardial infarction; E78.00 Pure hypercholesterolemia, unspecified; J45.909 Unspecified asthma, uncomplicated; I10 Essential (primary) hypertension; Z79.4 Long term (current) use of insulin; Z79.2 Long term (current) use of antibiotics; Z79.899 Other long term (current) drug therapy

== ENCOUNTER 2019-12-24 03:53 | Inpatient (IN) | payer OTHER ==
[2019-12-24] VITALS (11 sets, daily range): BP systolic 128–199; BP diastolic 67–112
[~2019-12-24] VITALS: Ht 165.1 cm; Wt 107.2 kg
[2019-12-24 04:10] LABS: BASO % 0.4 % (0.0-1.0); EOS # 0.1 10*3/uL (0.0-0.4); EOS % 1.3 % (1.0-4.0); HEMATOCRIT 45.2 % (42.0-52.0); LYMPH # 3.4 10*3/uL (1.3-4.4); LYMPH % 32.8 % (27.0-41.0); MEAN CELL VOLUME 82.5 fl (80.0-94.0); MEAN CORPUSCULAR HGB 29.2 pg (27.0-31.0); MEAN CORPUSCULAR HGB CONC 35.4 g/dl (33.0-37.0); MEAN PLATELET VOLUME 11.7 fl (9.6-12.3); MONO # 0.6 10*3/uL (0.1-1.0); NEUT # 6.1 10*3/uL (2.3-7.9); NEUT % 59.1 % (47.0-73.0); PLATELET COUNT AUTOMATED 230 10*3/uL (130-400); RED BLOOD COUNT 5.48 10*6/uL (4.50-5.90); RED CELL DISTRI WIDTH 12.5 % (0-14.5); WHITE BLOOD COUNT 10.3 10*3/uL (4.8-10.8)
[2019-12-24 04:25] LABS: ACT PARTIAL THROMBO TIME 25.2 SECONDS (20.0-32.1); ALBUMIN 4.1 gm/dl (3.1-4.5); ALKALINE PHOSPHATASE 93 U/L (45-117); BUN 9 mg/dl (7-24); CHLORIDE 94 mmol/L (98-107); CREATININE 1.17 mg/dL (0.70-1.30); INTERNATIONAL NORM RATIO 0.9 (2.0-3.5); POTASSIUM 3.1 mmol/L (3.5-5.1); SGOT/AST 12 IU/L (3-35); SGPT/ALT 34 U/L (12-78); SODIUM 133 mmol/L (136-145); TOTAL PROTEIN 8.2 gm/dL (6.4-8.2)
[2019-12-24 04:27] LABS: TROPONIN I < 0.015 ng/ml (<0.045)
--- NOTE | 2019-12-24 05:45 | NUR ---
PT STATES THAT THE NITRO HAS HELPED HIS CHEST PAIN
--- NOTE | 2019-12-24 07:15 | NUR ---
NURSE REPORT ACCEPTED FOR CONTINUATION OF CARE. ADMISSION PENDING, AWAITING BED ASSIGNMENT.
--- NOTE | 2019-12-24 07:50 | NUR ---
BED ASSIGNED. VITALS STABLE. CHEST PAIN IS CURRENTLY RATED 3/10.
--- NOTE | 2019-12-24 08:00 | NUR ---
CCA 49, admitted to , under the services of FREDERICK Tong MD with a diagnosis of CHEST PAIN. Chief complaint is CHEST PAIN. Patient arrived via bed from ER. Monitor applied. Initial assessment completed. Vital signs taken and recorded. FREDERICK TONG MD notified of admission to the unit. Orders received. See assessment for past medical history, medications and allergies. Patient and/or family oriented to unit. [address] visitation policy reviewed. Clothing/patient valuable form completed. JOSE MONSIVAIS.
--- NOTE | 2019-12-24 09:00 | NUR ---
Reinforcing Bar Setter in to talk to patient. Patient states lives at home with his . There are 14 steps in the home. Physician: Dr. Jose Lopez Pharmacy: [facility] Home health services: none Patient's level of ADLs: INDEPENDENT Patient has working utilities: yes DME: none Follow-up physician's appointment after d/c: he prefers to make his own follow up appt after discharge Does patient want to access PORTAL?: no Discharge plan discussed with patient. He lives at home with his . He is independent in his ADLs and ambulation. Discussed home health care services and he denies any home needs at this time. When medically stable he will be discharged to home. He states his will provide transportation on discharge. ELAINE YODER
--- NOTE | 2019-12-24 09:40 | NUR ---
[facility] CALLED AT THIS TIME REGARDING MED LIST. AWAITING FOR FAXED LIST.
[2019-12-24] MEDS ORDERED: GLUCOPHAGE500 M1 PO (09:48)
[2019-12-24] MEDS ORDERED: VITAMIN D10000 UNIT PO (09:49)
[2019-12-24] MEDS ORDERED: ADMELOG100 UNIT/1 SQ (09:51)
[2019-12-24] MEDS ORDERED: ADDERALL 10 MG10 MG PO (09:58)
[2019-12-24] MEDS ORDERED: DEXTROAMPH SACC10 M1 PO (10:00)
--- NOTE | 2019-12-24 10:43 | NUR ---
PT REFUSED LOVENOX DESPITE EDUCATION.
--- NOTE | 2019-12-24 11:09 | NUR ---
BSG 400. 15 UNITS OF INSULIN TO BE GIVEN PER S/S. WILL MONITOR. PATIENT ON DIABETIC DIET.
--- NOTE | 2019-12-24 22:47 | NUR ---
PT LEFT AMA. PT OFF FLOOR WITH BELONGINGS. EDUCATED ON RISKS OF LEAVING AMA. VERBALIZED UNDERSTANDING, STATED THAT HE WAS LEAVING ANYWAY.
== END 2019-12-24 22:48 | disposition left against medical advice (07) | DRG 756 ==
LOC: ED 03:53 → EDHOLD 06:37 → 4E 06:37
PROVIDERS: Emergency Medicine; ADMIT Internal Medicine
DX: F41.9 Anxiety disorder, unspecified (principal); E87.1 Hypo-osmolality and hyponatremia; I25.10 Atherosclerotic heart disease of native coronary artery without angina pectoris; I10 Essential (primary) hypertension; E78.5 Hyperlipidemia, unspecified; E87.6 Hypokalemia; E11.65 Type 2 diabetes mellitus with hyperglycemia; E87.8 Other disorders of electrolyte and fluid balance, not elsewhere classified; F33.9 Major depressive disorder, recurrent, unspecified; E78.2 Mixed hyperlipidemia; F43.10 Post-traumatic stress disorder, unspecified; Z53.29 Procedure and treatment not carried out because of patient's decision for other reasons; Z82.49 Family history of ischemic heart disease and other diseases of the circulatory system; Z79.82 Long term (current) use of aspirin; Z79.4 Long term (current) use of insulin; Z79.899 Other long term (current) drug therapy

== ENCOUNTER 2020-09-15 04:35 | Observation (INO) | payer OTHER ==
[2020-09-15] VITALS (10 sets, daily range): BP systolic 146–188; BP diastolic 82–112
[~2020-09-15] VITALS: Ht 165.1 cm; Wt 106.7 kg
[~2020-09-15 04:35] MED LIST changes: +ADDERALL 10 MG10 MG PO; +ADMELOG100 UNIT/1 SQ; +DEXTROAMPH SACC10 M1 PO; +GLUCOPHAGE500 M1 PO; +VITAMIN D10000 UNIT PO
[2020-09-15] MEDS ORDERED: AMPHETAMINE/DEX30 MG PO (05:00)
[2020-09-15] MEDS ORDERED: BUSPAR15 MG PO (05:00)
[2020-09-15] MEDS ORDERED: LAMOTRIGINE100 MG PO (05:00)
[2020-09-15] MEDS ORDERED: SERTRALINE HYD100 MG PO (05:01)
[2020-09-15] MEDS ORDERED: REXULTI3 MG PO (05:01)
[2020-09-15] MEDS ORDERED: ASPIRIN ADULT L81 M2 PO (05:02)
[2020-09-15] MEDS ORDERED: LANTUS SOL100 UNIT/1 SC (05:02)
[2020-09-15 05:12] LABS: ACT PARTIAL THROMBO TIME 24.8 SECONDS (20.0-32.1); INTERNATIONAL NORM RATIO 0.9 (2.0-3.5)
[2020-09-15 05:17] LABS: ALBUMIN 3.4 gm/dl (3.1-4.5); ALKALINE PHOSPHATASE 70 U/L (45-117); BUN 16 mg/dl (7-24); CHLORIDE 102 mmol/L (98-107); CREATININE 1.09 mg/dL (0.70-1.30); POTASSIUM 3.8 mmol/L (3.5-5.1); SGOT/AST 24 IU/L (3-35); SGPT/ALT 34 U/L (12-78); SODIUM 135 mmol/L (136-145)
[2020-09-15 05:25] LABS: TROPONIN I < 0.015 ng/ml (<0.045)
[2020-09-15 05:43] LABS: BASO % 0.4 % (0.0-1.0); EOS # 0.2 10*3/uL (0.0-0.4); EOS % 1.6 % (1.0-4.0); HEMATOCRIT 40.4 % (42.0-52.0); LYMPH # 2.7 10*3/uL (1.3-4.4); LYMPH % 27.9 % (27.0-41.0); MEAN CELL VOLUME 85.6 fl (80.0-94.0); MEAN CORPUSCULAR HGB 29.7 pg (27.0-31.0); MEAN CORPUSCULAR HGB CONC 34.7 g/dl (33.0-37.0); MEAN PLATELET VOLUME 12.1 fl (9.6-12.3); MONO # 0.6 10*3/uL (0.1-1.0); MONO % 6.3 % (3.0-9.0); NEUT # 6.1 10*3/uL (2.3-7.9); NEUT % 63.3 % (47.0-73.0); PLATELET COUNT AUTOMATED 194 10*3/uL (130-400); RED BLOOD COUNT 4.72 10*6/uL (4.50-5.90); RED CELL DISTRI WIDTH 12.3 % (0-14.5); WHITE BLOOD COUNT 9.7 10*3/uL (4.8-10.8)
--- NOTE | 2020-09-15 07:15 | NUR ---
PT RESTING IN BED WITH SIDERAILS UP X2. WAS PUT ON 02 FOR COMFORT
--- NOTE | 2020-09-15 09:37 | NUR ---
PT STATES THAT HE WAS TO APPEAR AT [place] [facility] TODAY AND ASKED IF SOMETHING COULD BE FAXED TO THEM TO PROVE HE IS HERE AND ADMITTED. I WAS ABLE TO GET A LETTERHEAD AND WRITE THAT THIS PT IS HERE AND WOULD MISS HIS COURT APPOINTMENT THIS MORNING. [facility] PER [facility]TS REQUEST
--- NOTE | 2020-09-15 10:34 | NUR ---
DR JOHNSON WAS CONTACTED DUE TO PTS INCREASING BP. NEW ORDERS WERE GIVEN TO PUT IN FOR PT. DR JOHNSON WANTED CARDIAC ENZYMES, HGB, A1C AND A LIPID PANEL DRAWN. HE ALSO WANTED A STRESS TEST FOR TOMORROW AT 1230 ORDERED. I WAS ALSO ADVISED TO ORDER CLONIDINE 0.1MG TO ADMINISTER TO PT WELL LOVENOX
--- NOTE | 2020-09-15 10:54 | NUR ---
DR JOHNSON ALSO ADVISED THAT THE PT IS TO GET LOVENOX
--- NOTE | 2020-09-15 10:57 | NUR ---
PT RESTING IN BED, ATE BREAKFAST. NO COMPLAINTS AT THIS TIME. CALL LIGHT WITHIN REACH
[2020-09-15 11:03] LABS: CHOLESTEROL 160 mg/dL (<200); HDL CHOLESTEROL 27 mg/dl (40-60); TRIGLYCERIDES 446 mg/dl (<150)
[2020-09-15 11:05] LABS: CKMB 8.6 ng/ml (0.5-3.6)
--- NOTE | 2020-09-15 11:09 | NUR ---
SPOKE WITH DR. JOHNSON ABOUT PATIENTS [facility] RESULTS AND HE ADVISES ME TO CONSULT DR. HERNANDEZ.
--- NOTE | 2020-09-15 11:25 | NUR ---
DR. HERNANDEZ IS AWARE OF THE PATIENT CONSULT.
[2020-09-15] MEDS ORDERED: ADDERALL 10 MG10 MG PO (12:21)
[2020-09-15] MEDS ORDERED: DERMACINRX5000 UNI1 PO (13:13)
[2020-09-15] MEDS ORDERED: NEURONTIN300 MG PO (13:14)
[2020-09-15] MEDS ORDERED: SINGULAIR10 M1 PO (13:14)
[2020-09-15] MEDS ORDERED: AMLODIPINE BESYL5 MG PO (13:17)
[2020-09-15] MEDS ORDERED: ALLOPURINOL300 MG PO (13:17)
[2020-09-15] MEDS ORDERED: ATORVASTATIN CA10 M1 PO (13:18)
[2020-09-15] MEDS ORDERED: LISINOPRIL20 MG PO (13:19)
[2020-09-15] MEDS ORDERED: ISOSORBIDE DINI30 MG PO (13:19)
[2020-09-15] MEDS ORDERED: METOPROLOL SUCC50 M2 PO (13:20)
[2020-09-15] MEDS ORDERED: PANTOPRAZOLE SO40 MG PO (13:21)
[2020-09-15] MEDS ORDERED: METFORMIN HYDR500 MG PO (13:21)
[2020-09-15] MEDS ORDERED: REXULTI2 MG PO (13:22)
[2020-09-15] MEDS ORDERED: RANITIDINE PO (13:23)
[2020-09-15] MEDS ORDERED: ALOGLIPTIN6.25 MG PO (13:24)
--- NOTE | 2020-09-15 15:42 | NUR ---
PT C/O PAIN, HEADACHE 04/30. PRN PAIN MEDCATION ADMNINISTERED. WILL REASSESS.
[2020-09-15 15:56] LABS: BASO % 0.5 % (0.0-1.0); EOS # 0.2 10*3/uL (0.0-0.4); EOS % 1.8 % (1.0-4.0); HEMATOCRIT 40.5 % (42.0-52.0); LYMPH # 2.8 10*3/uL (1.3-4.4); LYMPH % 33.2 % (27.0-41.0); MEAN CELL VOLUME 83.9 fl (80.0-94.0); MEAN CORPUSCULAR HGB 29.4 pg (27.0-31.0); MEAN CORPUSCULAR HGB CONC 35.1 g/dl (33.0-37.0); MEAN PLATELET VOLUME 11.4 fl (9.6-12.3); MONO # 0.5 10*3/uL (0.1-1.0); NEUT # 4.9 10*3/uL (2.3-7.9); NEUT % 58.1 % (47.0-73.0); PLATELET COUNT AUTOMATED 196 10*3/uL (130-400); RED BLOOD COUNT 4.83 10*6/uL (4.50-5.90); RED CELL DISTRI WIDTH 12.2 % (0-14.5); WHITE BLOOD COUNT 8.4 10*3/uL (4.8-10.8)
--- NOTE | 2020-09-15 16:40 | NUR ---
PT STATES PAIN HAS SUBSIDED SOME AND IS NOW 2/10. WILL CONTINUE TO REASSESS
--- NOTE | 2020-09-15 20:18 | NUR ---
MORPHINE GIVEN FOR C/O 07/31 HEADACHE
--- NOTE | 2020-09-15 20:20 | NUR ---
PATIENT STATES MORPHINE IS WORKING FOR HEADACHE
[2020-09-16] VITALS: BP 153/79
--- NOTE | 2020-09-16 02:00 | NUR ---
Patient resting quietly with no c/o discomfort. Respirations easy and regular. Vital signs stable. No overt distress. KWESI OCHOA
--- NOTE | 2020-09-16 06:00 | NUR ---
DR DARNELL CALLED IN, STATES STRES TEST IS TO BE NUCLEAR WITH IMAGES, IF THE PT CAN WALK ON THE TREADMILL HE CAN OR LEXISCAN, TO BE PREFORMED BY DR JOHNSON AND READ BY HIMSELF. DR CAUSEY CONFIRMED.
[2020-09-16 06:23] LABS: BASO # 0.1 10*3/uL (0.0-0.1); BASO % 0.5 % (0.0-1.0); EOS # 0.2 10*3/uL (0.0-0.4); EOS % 2.1 % (1.0-4.0); HEMATOCRIT 41.5 % (42.0-52.0); LYMPH # 2.8 10*3/uL (1.3-4.4); LYMPH % 26.5 % (27.0-41.0); MEAN CELL VOLUME 86.6 fl (80.0-94.0); MEAN CORPUSCULAR HGB 29.4 pg (27.0-31.0); MEAN PLATELET VOLUME 11.5 fl (9.6-12.3); MONO # 0.6 10*3/uL (0.1-1.0); MONO % 5.6 % (3.0-9.0); NEUT # 6.9 10*3/uL (2.3-7.9); NEUT % 64.7 % (47.0-73.0); PLATELET COUNT AUTOMATED 213 10*3/uL (130-400); RED BLOOD COUNT 4.79 10*6/uL (4.50-5.90); RED CELL DISTRI WIDTH 12.5 % (0-14.5); WHITE BLOOD COUNT 10.7 10*3/uL (4.8-10.8)
[2020-09-16 06:34] LABS: ACT PARTIAL THROMBO TIME 24.9 SECONDS (20.0-32.1); INTERNATIONAL NORM RATIO 0.9 (2.0-3.5)
[2020-09-16 06:51] LABS: ALBUMIN 3.4 gm/dl (3.1-4.5); ALKALINE PHOSPHATASE 73 U/L (45-117); BUN 14 mg/dl (7-24); CHLORIDE 103 mmol/L (98-107); CHOLESTEROL 152 mg/dL (<200); CREATININE 0.85 mg/dL (0.70-1.30); HDL CHOLESTEROL 26 mg/dl (40-60); POTASSIUM 3.9 mmol/L (3.5-5.1); SGOT/AST 18 IU/L (3-35); SGPT/ALT 35 U/L (12-78); SODIUM 137 mmol/L (136-145); TOTAL PROTEIN 6.7 gm/dL (6.4-8.2); TRIGLYCERIDES 508 mg/dl (<150)
[2020-09-16 06:57] LABS: FREE T4 1.12 ng/dl (0.76-1.46)
[2020-09-16 08:08] LABS: VITAMIN D, 25-HYDROXY 34.7 ng/mL (30-100)
--- NOTE | 2020-09-16 09:00 | NUR ---
Dental Patient Coordinator in to talk to patient. Patient states lives at home with his . There are 14 steps in the home. Physician: Dr. Jose Lopez Pharmacy: [facility] Home health services: none Patient's level of ADLs: INDEPENDENT Patient has working utilities: yes DME: none Follow-up physician's appointment after d/c: he prefers to make his own follow up appt after discharge Does patient want to access PORTAL?: no Discharge plan discussed with patient. He lives at home with his . He is independent in his ADLs and ambulation. Discussed home health care services and he declines. CM will continue to follow for any discharge planning needs. When medically stable he will be discharged to home. He states his will provide transportation on discharge. ELAINE YODER
[2020-09-16 12:00] VITALS: BP 158/114
--- NOTE | 2020-09-16 12:55 | NUR ---
INFOMRED SIGNED CONSENT OBTAINED FOR LEXISCAN STRESS TEST WITH DR JOHNSON, RESTING EKG NSR HR 77 BP 122/104. PULSE OX 97% LUNGS CLEAR. PT COMPLETED ONE MINUTE OF A LEXISCAN PROTOCOL WITH PT RECEIVING LEXISCAN 0.4MG IV OVER 10 SECONDS. PVC NOTED, NO ST CHANGES SEEN. PT C/O SOB THAT RESOLVED WITH RECOVERY. LAST RECOVERY HR OF 98 BP 132/80. PT IN STABLE CONDITION, AWAITING NUCLEAR IMAGES.
[2020-09-16] MEDS ORDERED: AMLODIPINE BESYL5 MG PO (14:36)
[2020-09-16] MEDS ORDERED: Zestril,Prinivi40 MG PO (14:36)
[2020-09-16] MEDS ORDERED: GLUCOPHAGE500 MG PO (14:36)
--- NOTE | 2020-09-16 15:24 | NUR ---
DR PENNINGTON ROUNDED AND SEEN PT AT BEDSIDE. ORDERS RECIEVED . PT TO HAVE VITALS OBTYAINED FOREFFECTIVENESS OF MEDICATION ORDERED.
[2020-09-16 16:00] VITALS: BP 182/110
--- NOTE | 2020-09-16 17:45 | NUR ---
DR PENNINGTON NOTIFIED OF BP NOW 150/98, MANUALLY. PT TO F/U TOMORROW WITH DR JOHNSON AND DR PENNINGTON IN AM.
--- NOTE | 2020-09-16 18:25 | NUR ---
Discharge instructions reviewed with patient/family. Patient receptive and verbalizes understanding. Follow-up care arranged. Written instructions given to patient/family. VLADIMIR REILLY
== END 2020-09-16 18:25 | disposition home or self-care (01) ==
LOC: ED 04:35 → EDHOLD 06:59 → 4E 11:44
PROVIDERS: Emergency Medicine; Internal Medicine; Internal Medicine Nephrology; ADMIT Internal Medicine; ATTEND Internal Medicine
DX: R07.89 Other chest pain (principal); I16.0 Hypertensive urgency; R51.9 Headache, unspecified; R74.8 Abnormal levels of other serum enzymes; E87.1 Hypo-osmolality and hyponatremia; I25.10 Atherosclerotic heart disease of native coronary artery without angina pectoris; E11.65 Type 2 diabetes mellitus with hyperglycemia; M10.9 Gout, unspecified; R06.82 Tachypnea, not elsewhere classified; I10 Essential (primary) hypertension; E78.5 Hyperlipidemia, unspecified; F43.10 Post-traumatic stress disorder, unspecified; E78.1 Pure hyperglyceridemia; G60.0 Hereditary motor and sensory neuropathy; F90.9 Attention-deficit hyperactivity disorder, unspecified type

== ENCOUNTER → 2021-07-13 | Outpatient (CLI) | payer OTHER ==
[~2021-07-13] MED LIST changes: +AMLODIPINE BESYL5 MG PO; +AMPHETAMINE SALT PO; +AMPHETAMINE/DEX30 MG PO; +ASPIR-TRIN325 MG PO; +ASPIRIN ADULT L81 M2 PO; +ATORVASTATIN CA10 M1 PO; +CLOPIDOGREL75 MG PO; +DERMACINRX5000 UNI1 PO; +GLUCOPHAGE500 MG PO; +HYDROXYZINE PAM PO; +ISOSORBIDE DINI30 MG PO; +LAMOTRIGINE100 MG PO; +LANTUS SOL100 UNIT/1 SC; +METFORMIN HYD1000 MG PO; +METFORMIN HYDR500 MG PO; +METOPROLOL SUCC50 M2 PO; +NEURONTIN300 MG PO; +PANTOPRAZOLE SO40 MG PO; +PROVENTIL HFA6.7 GM INH; +RANITIDINE PO; +REXULTI3 MG PO; +SERTRALINE HYD100 MG PO; +SINGULAIR10 M1 PO; +Zestril,Prinivi40 MG PO
[2021-07-13 12:44] LABS: HEMATOCRIT 41.9 % (42.0-52.0); MEAN CELL VOLUME 81.8 fl (80.0-94.0); MEAN CORPUSCULAR HGB 29.5 pg (27.0-31.0); RED BLOOD COUNT 5.12 10*6/uL (4.50-5.90); RED CELL DISTRI WIDTH 13.1 % (0-14.5); WHITE BLOOD COUNT 9.9 10*3/uL (4.8-10.8)
[2021-07-13 13:15] LABS: ALBUMIN 3.7 gm/dl (3.1-4.5); ALKALINE PHOSPHATASE 91 U/L (45-117); BUN 8 mg/dl (7-24); CHLORIDE 100 mmol/L (98-107); CHOLESTEROL 208 mg/dL (<200); CREATININE 0.95 mg/dL (0.70-1.30); FREE T4 0.89 ng/dl (0.76-1.46); POTASSIUM 3.5 mmol/L (3.5-5.1); SGOT/AST 12 IU/L (3-35); SGPT/ALT 35 U/L (12-78); SODIUM 135 mmol/L (136-145); TOTAL PROTEIN 7.9 gm/dL (6.4-8.2); TRIGLYCERIDES 584 mg/dl (<150)
[2021-07-13 13:38] LABS: VITAMIN D, 25-HYDROXY 36.6 ng/mL (30-100)
== END | disposition home or self-care (01) ==
LOC: LAB 12:17
PROVIDERS: ATTEND Family Medicine
DX: Z00.00 Encounter for general adult medical examination without abnormal findings (principal); E55.9 Vitamin D deficiency, unspecified; R53.83 Other fatigue; G47.33 Obstructive sleep apnea (adult) (pediatric); I10 Essential (primary) hypertension

== ENCOUNTER 2021-09-21 08:45 | Emergency (ER) | payer OTHER ==
[~2021-09-21] VITALS: Ht 165.1 cm; Wt 111.1 kg
[2021-09-21 09:16] LABS: BASO % 0.4 % (0.0-1.0); EOS # 0.2 10*3/uL (0.0-0.4); EOS % 1.9 % (1.0-4.0); HEMATOCRIT 44.7 % (42.0-52.0); LYMPH # 2.2 10*3/uL (1.3-4.4); LYMPH % 21.2 % (27.0-41.0); MEAN CELL VOLUME 86.6 fl (80.0-94.0); MEAN CORPUSCULAR HGB 29.7 pg (27.0-31.0); MEAN CORPUSCULAR HGB CONC 34.2 g/dl (33.0-37.0); MEAN PLATELET VOLUME 11.2 fl (9.6-12.3); MONO # 0.5 10*3/uL (0.1-1.0); MONO % 5.3 % (3.0-9.0); NEUT # 7.2 10*3/uL (2.3-7.9); NEUT % 70.7 % (47.0-73.0); PLATELET COUNT AUTOMATED 227 10*3/uL (130-400); RED BLOOD COUNT 5.16 10*6/uL (4.50-5.90); WHITE BLOOD COUNT 10.2 10*3/uL (4.8-10.8)
[2021-09-21 09:27] LABS: ACT PARTIAL THROMBO TIME 25.8 SECONDS (20.0-32.1)
[2021-09-21 09:34] LABS: ALBUMIN 3.7 gm/dl (3.1-4.5); ALKALINE PHOSPHATASE 70 U/L (45-117); BUN 19 mg/dl (7-24); CHLORIDE 106 mmol/L (98-107); CREATININE 1.32 mg/dL (0.70-1.30); LIPASE 152 U/L (73-393); SGOT/AST 16 IU/L (3-35); SGPT/ALT 34 U/L (12-78); SODIUM 138 mmol/L (136-145); TOTAL PROTEIN 7.9 gm/dL (6.4-8.2)
[2021-09-21 09:39] LABS: TROPONIN I < 0.015 ng/ml (<0.045)
[2021-09-21] MEDS ORDERED: ZOFRAN4 MG PO (11:04)
== END 2021-09-21 11:17 | disposition home or self-care (01) ==
LOC: ED 08:45
PROVIDERS: Emergency Medicine
DX: B34.9 Viral infection, unspecified (principal); Z20.822 Contact with and (suspected) exposure to COVID-19; F17.220 Nicotine dependence, chewing tobacco, uncomplicated; Z79.899 Other long term (current) drug therapy

== ENCOUNTER → 2021-10-27 | Outpatient (CLI) | payer OTHER ==
[~2021-10-27] MED LIST changes: +ZOFRAN4 MG PO
[2021-10-27 16:09] LABS: ALBUMIN 3.7 gm/dl (3.1-4.5); CHOLESTEROL 209 mg/dL (<200); SGOT/AST 11 IU/L (3-35); SGPT/ALT 29 U/L (12-78)
[2021-10-27 16:12] LABS: ALKALINE PHOSPHATASE 72 U/L (45-117); TOTAL PROTEIN 8.1 gm/dL (6.4-8.2); TRIGLYCERIDES 574 mg/dl (<150)
== END | disposition home or self-care (01) ==
LOC: LAB 15:01
PROVIDERS: ATTEND Psychiatry & Neurology Neurology
DX: G60.0 Hereditary motor and sensory neuropathy (principal)

== ENCOUNTER → 2021-11-02 | Outpatient (CLI) | payer OTHER | END | disposition home or self-care (01) | LOC: MRI 13:57 | PROVIDERS: ATTEND Psychiatry & Neurology Neurology | DX: I63.349 Cerebral infarction due to thrombosis of unspecified cerebellar artery (principal) ==

== ENCOUNTER → 2022-07-05 | Outpatient (CLI) | payer OTHER ==
[2022-07-05 10:44] LABS: BASO # 0.1 10*3/uL (0.0-0.1); BASO % 0.5 % (0.0-1.0); EOS # 0.3 10*3/uL (0.0-0.4); EOS % 2.7 % (1.0-4.0); HEMATOCRIT 40.7 % (42.0-52.0); LYMPH # 2.4 10*3/uL (1.3-4.4); LYMPH % 19.3 % (27.0-41.0); MEAN CELL VOLUME 85.1 fl (80.0-94.0); MEAN CORPUSCULAR HGB 30.3 pg (27.0-31.0); MEAN CORPUSCULAR HGB CONC 35.6 g/dl (33.0-37.0); MEAN PLATELET VOLUME 11.3 fl (9.6-12.3); MONO # 0.6 10*3/uL (0.1-1.0); MONO % 5.2 % (3.0-9.0); NEUT # 8.7 10*3/uL (2.3-7.9); NEUT % 71.6 % (47.0-73.0); PLATELET COUNT AUTOMATED 207 10*3/uL (130-400); RED BLOOD COUNT 4.78 10*6/uL (4.50-5.90); RED CELL DISTRI WIDTH 12.9 % (0-14.5); WHITE BLOOD COUNT 12.2 10*3/uL (4.8-10.8)
[2022-07-05 11:17] LABS: ALKALINE PHOSPHATASE 82 U/L (45-117); BUN 16 mg/dl (7-24); CHLORIDE 100 mmol/L (98-107); CHOLESTEROL 174 mg/dL (<200); CREATININE 1.14 mg/dL (0.70-1.30); POTASSIUM 4.7 mmol/L (3.5-5.1); SGOT/AST 17 IU/L (3-35); SGPT/ALT 35 U/L (12-78); SODIUM 133 mmol/L (136-145); TOTAL PROTEIN 7.7 gm/dL (6.4-8.2); TRIGLYCERIDES 554 mg/dl (<150)
== END | disposition home or self-care (01) ==
LOC: LAB 10:13
PROVIDERS: ATTEND Nurse Practitioner
DX: Z51.81 Encounter for therapeutic drug level monitoring (principal); F43.10 Post-traumatic stress disorder, unspecified; F31.9 Bipolar disorder, unspecified; Z79.899 Other long term (current) drug therapy

== ENCOUNTER 2022-07-11 12:07 | Emergency (ER) | payer OTHER ==
[~2022-07-11] VITALS: Ht 165.1 cm; Wt 111.1 kg
[2022-07-11] MEDS ORDERED: IBU800 MG PO (13:14)
== END 2022-07-11 13:28 | disposition home or self-care (01) ==
LOC: ED 12:07
DX: S93.402A Sprain of unspecified ligament of left ankle, initial encounter (principal); I25.2 Old myocardial infarction; F41.9 Anxiety disorder, unspecified; F32.A Depression, unspecified; I10 Essential (primary) hypertension; E11.9 Type 2 diabetes mellitus without complications; E78.5 Hyperlipidemia, unspecified; J45.909 Unspecified asthma, uncomplicated; F17.220 Nicotine dependence, chewing tobacco, uncomplicated; Z79.899 Other long term (current) drug therapy; Z79.4 Long term (current) use of insulin; Z90.89 Acquired absence of other organs; W18.43XA Slipping, tripping and stumbling without falling due to stepping from one level to another, initial encounter; Y93.01 Activity, walking, marching and hiking; Y92.89 Other specified places as the place of occurrence of the external cause; Y99.8 Other external cause status

== ENCOUNTER 2023-01-27 17:06 | Emergency (ER) | payer OTHER ==
[~2023-01-27] VITALS: Ht 165.1 cm; Wt 106.6 kg
[2023-01-27 18:31] LABS: BASO # 0.1 10*3/uL (0.0-0.1); BASO % 0.6 % (0.0-1.0); EOS # 0.7 10*3/uL (0.0-0.4); EOS % 5.3 % (1.0-4.0); HEMATOCRIT 41.3 % (42.0-52.0); LYMPH # 3.8 10*3/uL (1.3-4.4); LYMPH % 27.3 % (27.0-41.0); MEAN CELL VOLUME 82.8 fl (80.0-94.0); MEAN CORPUSCULAR HGB 30.1 pg (27.0-31.0); MEAN CORPUSCULAR HGB CONC 36.3 g/dl (33.0-37.0); MEAN PLATELET VOLUME 10.9 fl (9.6-12.3); MONO # 0.9 10*3/uL (0.1-1.0); MONO % 6.1 % (3.0-9.0); NEUT # 8.5 10*3/uL (2.3-7.9); NEUT % 60.4 % (47.0-73.0); PLATELET COUNT AUTOMATED 255 10*3/uL (130-400); RED BLOOD COUNT 4.99 10*6/uL (4.50-5.90); RED CELL DISTRI WIDTH 12.8 % (0-14.5)
[2023-01-27 18:45] LABS: ALKALINE PHOSPHATASE 70 U/L (46-116); BUN 9 mg/dl (9-23); CHLORIDE 100 mmol/L (98-107); POTASSIUM 3.3 mmol/L (3.4-5.1); SGPT/ALT 10 U/L (10-49); TOTAL PROTEIN 7.6 gm/dL (6.0-8.0)
[2023-01-27] MEDS ORDERED: PREDNISONE50 MG PO (19:12)
[2023-01-27] MEDS ORDERED: ZITHROMAX250 MG PO (19:12)
== END 2023-01-27 19:25 | disposition home or self-care (01) ==
LOC: ED 17:06
PROVIDERS: Internal Medicine
DX: J40 Bronchitis, not specified as acute or chronic (principal); I25.2 Old myocardial infarction; E11.9 Type 2 diabetes mellitus without complications; I10 Essential (primary) hypertension; M10.9 Gout, unspecified; K21.9 Gastro-esophageal reflux disease without esophagitis; E78.00 Pure hypercholesterolemia, unspecified; Z79.899 Other long term (current) drug therapy; Z79.82 Long term (current) use of aspirin; Z90.89 Acquired absence of other organs; Z87.891 Personal history of nicotine dependence

== ENCOUNTER 2023-02-01 17:41 | Emergency (ER) | payer OTHER ==
[~2023-02-01] VITALS: Ht 165.1 cm; Wt 106.6 kg
[~2023-02-01 17:41] MED LIST changes: +ZITHROMAX250 MG PO
[2023-02-01 18:11] LABS: BASO % 0.1 % (0.0-1.0); HEMATOCRIT 46.1 % (42.0-52.0); LYMPH # 1.7 10*3/uL (1.3-4.4); MEAN CELL VOLUME 83.1 fl (80.0-94.0); MEAN CORPUSCULAR HGB 29.4 pg (27.0-31.0); MEAN CORPUSCULAR HGB CONC 35.4 g/dl (33.0-37.0); MEAN PLATELET VOLUME 11.3 fl (9.6-12.3); MONO # 0.3 10*3/uL (0.1-1.0); MONO % 2.1 % (3.0-9.0); NEUT # 12.9 10*3/uL (2.3-7.9); PLATELET COUNT AUTOMATED 291 10*3/uL (130-400); RED BLOOD COUNT 5.55 10*6/uL (4.50-5.90); RED CELL DISTRI WIDTH 12.9 % (0-14.5)
[2023-02-01 18:23] LABS: ACT PARTIAL THROMBO TIME 23.8 SECONDS (20.0-32.1); INTERNATIONAL NORM RATIO 0.9 (2.0-3.5)
[2023-02-01 18:27] LABS: ALKALINE PHOSPHATASE 72 U/L (46-116); BUN 15 mg/dl (9-23); CHLORIDE 101 mmol/L (98-107); POTASSIUM 3.9 mmol/L (3.4-5.1); SGPT/ALT 16 U/L (10-49); TOTAL PROTEIN 7.8 gm/dL (6.0-8.0)
== END 2023-02-01 22:21 | disposition home or self-care (01) ==
LOC: ED 17:41
PROVIDERS: Emergency Medicine
DX: I47.1 Supraventricular tachycardia (principal); Z79.899 Other long term (current) drug therapy; Z79.82 Long term (current) use of aspirin; Z90.89 Acquired absence of other organs; F17.220 Nicotine dependence, chewing tobacco, uncomplicated

== ENCOUNTER 2023-02-25 18:08 | Emergency (ER) | payer OTHER ==
[~2023-02-25] VITALS: Ht 165.1 cm; Wt 106.6 kg
[2023-02-25 18:53] LABS: BASO # 0.1 10*3/uL (0.0-0.1); BASO % 0.5 % (0.0-1.0); EOS # 0.7 10*3/uL (0.0-0.4); EOS % 5.7 % (1.0-4.0); HEMATOCRIT 41.3 % (42.0-52.0); LYMPH # 4.1 10*3/uL (1.3-4.4); LYMPH % 32.7 % (27.0-41.0); MEAN CELL VOLUME 83.3 fl (80.0-94.0); MEAN CORPUSCULAR HGB 29.6 pg (27.0-31.0); MEAN CORPUSCULAR HGB CONC 35.6 g/dl (33.0-37.0); MEAN PLATELET VOLUME 11.1 fl (9.6-12.3); MONO # 0.7 10*3/uL (0.1-1.0); MONO % 5.9 % (3.0-9.0); NEUT # 6.8 10*3/uL (2.3-7.9); NEUT % 54.8 % (47.0-73.0); PLATELET COUNT AUTOMATED 262 10*3/uL (130-400); RED BLOOD COUNT 4.96 10*6/uL (4.50-5.90); RED CELL DISTRI WIDTH 12.8 % (0-14.5); WHITE BLOOD COUNT 12.4 10*3/uL (4.8-10.8)
[2023-02-25 19:04] LABS: ACT PARTIAL THROMBO TIME 26.1 SECONDS (20.0-32.1)
[2023-02-25 19:10] LABS: ALKALINE PHOSPHATASE 69 U/L (46-116); BUN 18 mg/dl (9-23); CHLORIDE 103 mmol/L (98-107); LIPASE 46 U/L (12-53); POTASSIUM 3.5 mmol/L (3.4-5.1); SGPT/ALT 12 U/L (10-49); TOTAL PROTEIN 7.1 gm/dL (6.0-8.0)
== END 2023-02-26 00:06 | disposition home or self-care (01) ==
LOC: ED 18:08
PROVIDERS: Emergency Medicine
DX: I47.1 Supraventricular tachycardia (principal); E87.6 Hypokalemia; E83.42 Hypomagnesemia; I25.2 Old myocardial infarction; K21.9 Gastro-esophageal reflux disease without esophagitis; I25.10 Atherosclerotic heart disease of native coronary artery without angina pectoris; M10.9 Gout, unspecified; I10 Essential (primary) hypertension; E10.9 Type 1 diabetes mellitus without complications; E78.5 Hyperlipidemia, unspecified; E78.00 Pure hypercholesterolemia, unspecified; E66.9 Obesity, unspecified; Z90.89 Acquired absence of other organs; F17.220 Nicotine dependence, chewing tobacco, uncomplicated; Z79.899 Other long term (current) drug therapy; Z79.82 Long term (current) use of aspirin

== ENCOUNTER 2023-03-08 09:17 | Emergency (ER) | payer OTHER ==
[~2023-03-08] VITALS: Ht 165.1 cm; Wt 106.6 kg
== END 2023-03-08 11:45 | disposition home or self-care (01) ==
LOC: ED 09:17
DX: S93.402A Sprain of unspecified ligament of left ankle, initial encounter (principal); F32.A Depression, unspecified; F41.9 Anxiety disorder, unspecified; I25.2 Old myocardial infarction; I10 Essential (primary) hypertension; E11.40 Type 2 diabetes mellitus with diabetic neuropathy, unspecified; K21.9 Gastro-esophageal reflux disease without esophagitis; M10.9 Gout, unspecified; E78.00 Pure hypercholesterolemia, unspecified; X58.XXXA Exposure to other specified factors, initial encounter; Y93.89 Activity, other specified; Y92.89 Other specified places as the place of occurrence of the external cause; Y99.8 Other external cause status; Z90.89 Acquired absence of other organs; F17.220 Nicotine dependence, chewing tobacco, uncomplicated

== ENCOUNTER 2023-05-27 17:41 | Emergency (ER) | payer OTHER ==
[~2023-05-27] VITALS: Ht 165.1 cm; Wt 111.1 kg
[2023-05-27 18:13] LABS: BASO # 0.1 10*3/uL (0.0-0.1); BASO % 0.5 % (0.0-1.0); EOS # 0.1 10*3/uL (0.0-0.4); EOS % 1.3 % (1.0-4.0); HEMATOCRIT 39.7 % (42.0-52.0); LYMPH # 2.8 10*3/uL (1.3-4.4); LYMPH % 25.2 % (27.0-41.0); MEAN CORPUSCULAR HGB CONC 35.3 g/dl (33.0-37.0); MEAN PLATELET VOLUME 11.4 fl (9.6-12.3); MONO # 0.7 10*3/uL (0.1-1.0); MONO % 6.2 % (3.0-9.0); NEUT # 7.3 10*3/uL (2.3-7.9); NEUT % 66.5 % (47.0-73.0); PLATELET COUNT AUTOMATED 232 10*3/uL (130-400); RED BLOOD COUNT 4.67 10*6/uL (4.50-5.90); WHITE BLOOD COUNT 10.9 10*3/uL (4.8-10.8)
[2023-05-27 18:23] LABS: ACT PARTIAL THROMBO TIME 25.8 SECONDS (20.0-32.1)
[2023-05-27 18:36] LABS: ALKALINE PHOSPHATASE 69 U/L (46-116); BUN 13 mg/dl (9-23); CHLORIDE 105 mmol/L (98-107); POTASSIUM 3.6 mmol/L (3.4-5.1); SGPT/ALT 14 U/L (10-49); TOTAL PROTEIN 7.4 gm/dL (6.0-8.0)
== END 2023-05-27 19:44 | disposition home or self-care (01) ==
LOC: ED 17:41
PROVIDERS: Nurse Practitioner Family
DX: R00.2 Palpitations (principal); F32.A Depression, unspecified; F41.9 Anxiety disorder, unspecified; I25.2 Old myocardial infarction; E11.40 Type 2 diabetes mellitus with diabetic neuropathy, unspecified; M10.9 Gout, unspecified; E78.00 Pure hypercholesterolemia, unspecified; I10 Essential (primary) hypertension; Z90.89 Acquired absence of other organs; Z98.890 Other specified postprocedural states

== ENCOUNTER 2023-09-13 17:36 | Emergency (ER) | payer OTHER ==
[~2023-09-13] VITALS: Ht 165.1 cm; Wt 116.6 kg
[~2023-09-13 17:36] MED LIST changes: +BUSPAR5 MG PO; -DERMACINRX5000 UNI1 PO; +GLIMEPIRIDE4 M1 PO; -ISOSORBIDE DINI30 MG PO; +Imdur SA60 MG PO; +LOPRESSOR50 M1 PO; -METOPROLOL SUCC50 M2 PO; +NOVOLIN 70100 UNIT/2 SQ; +NOVOLOG10 ML SC; +OMEGA 3 FISH O1 EACH PO; +OZEMPIC1 MG/0.71 SQ; +REXULTI1 MG PO; -REXULTI3 MG PO; +VITAMIN D3125 MC1 PO; +ZESTRIL40 MG PO; +ZOLOFT100 MG PO
[2023-09-13 18:06] LABS: BASO # 0.1 10*3/uL (0.0-0.1); BASO % 0.4 % (0.0-1.0); EOS # 0.2 10*3/uL (0.0-0.4); EOS % 1.3 % (1.0-4.0); HEMATOCRIT 40.7 % (42.0-52.0); LYMPH # 4.8 10*3/uL (1.3-4.4); LYMPH % 28.8 % (27.0-41.0); MEAN CELL VOLUME 88.5 fl (80.0-94.0); MEAN CORPUSCULAR HGB 30.7 pg (27.0-31.0); MEAN CORPUSCULAR HGB CONC 34.6 g/dl (33.0-37.0); MEAN PLATELET VOLUME 11.3 fl (9.6-12.3); MONO # 1.2 10*3/uL (0.1-1.0); MONO % 7.4 % (3.0-9.0); NEUT # 10.4 10*3/uL (2.3-7.9); NEUT % 61.7 % (47.0-73.0); PLATELET COUNT AUTOMATED 289 10*3/uL (130-400); RED CELL DISTRI WIDTH 13.9 % (0-14.5); WHITE BLOOD COUNT 16.8 10*3/uL (4.8-10.8)
[2023-09-13 18:17] LABS: ACT PARTIAL THROMBO TIME 26.5 SECONDS (20.0-32.1)
[2023-09-13 18:31] LABS: ALKALINE PHOSPHATASE 64 U/L (46-116); BUN 17 mg/dl (9-23); CHLORIDE 99 mmol/L (98-107); LIPASE 46 U/L (12-53); POTASSIUM 3.9 mmol/L (3.4-5.1); SGPT/ALT 25 U/L (5-49); TOTAL PROTEIN 7.3 gm/dL (6.0-8.0)
== END 2023-09-13 22:01 | disposition left against medical advice (07) ==
LOC: ED 17:36
PROVIDERS: Emergency Medicine
DX: R06.02 Shortness of breath (principal); R07.89 Other chest pain; R00.2 Palpitations; R11.0 Nausea; R51.9 Headache, unspecified; R00.0 Tachycardia, unspecified; F17.220 Nicotine dependence, chewing tobacco, uncomplicated; Z79.899 Other long term (current) drug therapy; Z79.4 Long term (current) use of insulin; Z79.82 Long term (current) use of aspirin; Z90.89 Acquired absence of other organs; Z98.61 Coronary angioplasty status; Z53.29 Procedure and treatment not carried out because of patient's decision for other reasons

== ENCOUNTER 2023-10-28 12:21 | Emergency (ER) | payer OTHER ==
[~2023-10-28] VITALS: Ht 165.1 cm; Wt 111.1 kg
[2023-10-28] MEDS ORDERED: MUCINEX ER600 MG PO (16:12)
== END 2023-10-28 16:25 | disposition home or self-care (01) ==
LOC: ED 12:21
DX: B34.9 Viral infection, unspecified (principal); F32.A Depression, unspecified; F41.9 Anxiety disorder, unspecified; I25.2 Old myocardial infarction; I10 Essential (primary) hypertension; E11.40 Type 2 diabetes mellitus with diabetic neuropathy, unspecified; M10.9 Gout, unspecified; K21.9 Gastro-esophageal reflux disease without esophagitis; E78.00 Pure hypercholesterolemia, unspecified; Z20.822 Contact with and (suspected) exposure to COVID-19; Z90.89 Acquired absence of other organs; Z95.5 Presence of coronary angioplasty implant and graft; Z98.890 Other specified postprocedural states; F17.220 Nicotine dependence, chewing tobacco, uncomplicated

== ENCOUNTER 2023-11-26 17:40 | Emergency (ER) | payer OTHER ==
[~2023-11-26] VITALS: Ht 165.1 cm; Wt 111.1 kg
[~2023-11-26 17:40] MED LIST changes: +MUCINEX ER600 MG PO
[2023-11-26 18:06] LABS: BASO % 0.3 % (0.0-1.0); EOS % 7.9 % (1.0-4.0); HEMATOCRIT 41.8 % (42.0-52.0); LYMPH # 3.2 10*3/uL (1.3-4.4); LYMPH % 24.7 % (27.0-41.0); MEAN CELL VOLUME 89.9 fl (80.0-94.0); MEAN CORPUSCULAR HGB 30.1 pg (27.0-31.0); MEAN CORPUSCULAR HGB CONC 33.5 g/dl (33.0-37.0); MEAN PLATELET VOLUME 11.5 fl (9.6-12.3); MONO # 0.8 10*3/uL (0.1-1.0); MONO % 6.1 % (3.0-9.0); NEUT # 7.9 10*3/uL (2.3-7.9); NEUT % 60.6 % (47.0-73.0); PLATELET COUNT AUTOMATED 251 10*3/uL (130-400); RED BLOOD COUNT 4.65 10*6/uL (4.50-5.90); RED CELL DISTRI WIDTH 12.7 % (0-14.5)
[2023-11-26 18:22] LABS: ALKALINE PHOSPHATASE 77 U/L (46-116); BUN 9 mg/dl (9-23); CHLORIDE 106 mmol/L (98-107); POTASSIUM 3.4 mmol/L (3.4-5.1); SGPT/ALT 13 U/L (5-49); TOTAL PROTEIN 7.3 gm/dL (6.0-8.0)
[2023-11-26] MEDS ORDERED: ONDANSETRON4 MG SL (18:49)
[2023-11-26] MEDS ORDERED: ANTI-DIARRHEAL2 MG PO (18:49)
== END 2023-11-26 18:56 | disposition home or self-care (01) ==
LOC: ED 17:40
PROVIDERS: Emergency Medicine
DX: R11.2 Nausea with vomiting, unspecified (principal); R19.7 Diarrhea, unspecified; F32.A Depression, unspecified; F41.9 Anxiety disorder, unspecified; I25.2 Old myocardial infarction; I10 Essential (primary) hypertension; E11.40 Type 2 diabetes mellitus with diabetic neuropathy, unspecified; M10.9 Gout, unspecified; K21.9 Gastro-esophageal reflux disease without esophagitis; E78.00 Pure hypercholesterolemia, unspecified; Z95.5 Presence of coronary angioplasty implant and graft; Z90.89 Acquired absence of other organs; Z98.890 Other specified postprocedural states; F17.220 Nicotine dependence, chewing tobacco, uncomplicated; Z20.822 Contact with and (suspected) exposure to COVID-19

== ENCOUNTER 2023-12-07 12:51 | Emergency (ER) | payer OTHER ==
[~2023-12-07] VITALS: Ht 165.1 cm; Wt 113.4 kg
[~2023-12-07 12:51] MED LIST changes: +ANTI-DIARRHEAL2 MG PO; +ONDANSETRON4 MG SL
[2023-12-07] MEDS ORDERED: TIZANIDINE HCL4 MG PO ×2 (15:44→15:45)
== END 2023-12-07 15:52 | disposition home or self-care (01) ==
LOC: ED 12:51
DX: M25.562 Pain in left knee (principal); M54.50 Low back pain, unspecified; F32.A Depression, unspecified; F41.9 Anxiety disorder, unspecified; I25.2 Old myocardial infarction; I10 Essential (primary) hypertension; E11.40 Type 2 diabetes mellitus with diabetic neuropathy, unspecified; M10.9 Gout, unspecified; K21.9 Gastro-esophageal reflux disease without esophagitis; Z90.89 Acquired absence of other organs; Z95.5 Presence of coronary angioplasty implant and graft; Z98.890 Other specified postprocedural states; F17.220 Nicotine dependence, chewing tobacco, uncomplicated; W00.0XXA Fall on same level due to ice and snow, initial encounter; Y93.89 Activity, other specified; Y92.89 Other specified places as the place of occurrence of the external cause; Y99.0 Civilian activity done for income or pay

== ENCOUNTER 2024-02-18 18:18 | Emergency (ER) | payer OTHER ==
[~2024-02-18 18:18] MED LIST changes: +TIZANIDINE HCL4 MG PO
[2024-02-18 19:18] LABS: BASO # 0.1 10*3/uL (0.0-0.1); BASO % 0.3 % (0.0-1.0); EOS # 0.9 10*3/uL (0.0-0.4); EOS % 4.8 % (1.0-4.0); HEMATOCRIT 45.9 % (42.0-52.0); LYMPH # 2.5 10*3/uL (1.3-4.4); LYMPH % 13.4 % (27.0-41.0); MEAN CELL VOLUME 85.5 fl (80.0-94.0); MEAN CORPUSCULAR HGB 29.1 pg (27.0-31.0); MEAN PLATELET VOLUME 11.9 fl (9.6-12.3); MONO % 5.2 % (3.0-9.0); NEUT % 75.6 % (47.0-73.0); PLATELET COUNT AUTOMATED 259 10*3/uL (130-400); RED BLOOD COUNT 5.37 10*6/uL (4.50-5.90); RED CELL DISTRI WIDTH 13.2 % (0-14.5); WHITE BLOOD COUNT 18.5 10*3/uL (4.8-10.8)
[2024-02-18 19:46] LABS: ALKALINE PHOSPHATASE 78 U/L (46-116); BUN 9 mg/dl (9-23); CHLORIDE 106 mmol/L (98-107); POTASSIUM 3.4 mmol/L (3.4-5.1); TOTAL PROTEIN 7.5 gm/dL (6.0-8.0)
[2024-02-18 19:48] LABS: SGPT/ALT < 7 U/L (5-49)
[2024-02-18] MEDS ORDERED: MAGNESIUM SULFATE 100 ML IV ONE (19:50)
[2024-02-18] MEDS ORDERED: DEXTROSE 10 % IN WATER 250 ML DEHP.FR.BG IV ONE (19:50)
[2024-02-18] MEDS ORDERED: Ondansetron Hydrochloride 4 MG/2 ML VIAL IV ONE (20:55)
[2024-02-18] MEDS ORDERED: Ondansetron 4 MG 2 TAB ED PACK PO SCH (20:55)
[2024-02-18] MEDS ORDERED: ONDANSETRON4 MG SL (20:58)
== END 2024-02-18 21:43 | disposition home or self-care (01) ==
LOC: ED 18:18
PROVIDERS: Nurse Practitioner
DX: K52.9 Noninfective gastroenteritis and colitis, unspecified (principal); E11.649 Type 2 diabetes mellitus with hypoglycemia without coma; I10 Essential (primary) hypertension; I25.10 Atherosclerotic heart disease of native coronary artery without angina pectoris; I25.2 Old myocardial infarction; H53.8 Other visual disturbances; R42 Dizziness and giddiness; R11.0 Nausea; F32.A Depression, unspecified; F41.9 Anxiety disorder, unspecified; M10.9 Gout, unspecified; K21.9 Gastro-esophageal reflux disease without esophagitis; E11.40 Type 2 diabetes mellitus with diabetic neuropathy, unspecified; E78.00 Pure hypercholesterolemia, unspecified; Z90.89 Acquired absence of other organs; Z95.5 Presence of coronary angioplasty implant and graft; Z98.890 Other specified postprocedural states; F17.220 Nicotine dependence, chewing tobacco, uncomplicated

== ENCOUNTER 2024-05-02 13:51 | Emergency (ER) | payer OTHER ==
[~2024-05-02] VITALS: Wt 108.9 kg
[2024-05-02] MEDS ORDERED: Ondansetron Hydrochloride 4 MG/2 ML VIAL IV ONE (14:15)
[2024-05-02] MEDS ORDERED: SODIUM CHLORIDE 0.9% 1,000 ML IV ONE (14:15)
[2024-05-02 14:23] LABS: BASO # 0.1 10*3/uL (0.0-0.1); BASO % 0.7 % (0.0-1.0); EOS # 0.7 10*3/uL (0.0-0.4); EOS % 5.8 % (1.0-4.0); LYMPH # 2.7 10*3/uL (1.3-4.4); LYMPH % 23.2 % (27.0-41.0); MEAN CORPUSCULAR HGB 29.6 pg (27.0-31.0); MEAN CORPUSCULAR HGB CONC 34.4 g/dl (33.0-37.0); MEAN PLATELET VOLUME 11.7 fl (9.6-12.3); MONO # 0.7 10*3/uL (0.1-1.0); MONO % 6.3 % (3.0-9.0); NEUT # 7.5 10*3/uL (2.3-7.9); NEUT % 63.7 % (47.0-73.0); PLATELET COUNT AUTOMATED 214 10*3/uL (130-400); RED BLOOD COUNT 4.77 10*6/uL (4.50-5.90); RED CELL DISTRI WIDTH 13.1 % (0-14.5); WHITE BLOOD COUNT 11.7 10*3/uL (4.8-10.8)
[2024-05-02 14:42] LABS: ALKALINE PHOSPHATASE 71 U/L (46-116); BUN 7 mg/dl (9-23); CHLORIDE 103 mmol/L (98-107); LIPASE 34 U/L (12-53); POTASSIUM 3.6 mmol/L (3.4-5.1); SGPT/ALT 12 U/L (5-49); TOTAL PROTEIN 7.2 gm/dL (6.0-8.0)
[2024-05-02 15:03] LABS: BILIRUBIN Negative (Negative); BLOOD Negative (Negative); CLARITY Clear (Clear); COLOR Yellow (Yellow); GLUCOSE Negative (Negative); KETONE Negative (Negative); LEUKO ESTERASE Negative (Negative); NITRITE Negative (Negative); SPECIFIC GRAVITY <= 1.005 (1.001-1.030); UROBILINOGEN 0.2 E.U./dl (0.0-1.0)
[2024-05-02 15:10] LABS: EPITHELIAL CELLS 0-2; WBC 0-2 wbc/hpf (0-5)
[2024-05-02] MEDS ORDERED: Ondansetron4 MG PO (15:25)
== END 2024-05-02 15:27 | disposition home or self-care (01) ==
LOC: ED 13:51
PROVIDERS: Physician Assistant Medical
DX: K52.9 Noninfective gastroenteritis and colitis, unspecified (principal); Z20.822 Contact with and (suspected) exposure to COVID-19; R11.2 Nausea with vomiting, unspecified; I10 Essential (primary) hypertension; I25.2 Old myocardial infarction; I25.10 Atherosclerotic heart disease of native coronary artery without angina pectoris; M10.9 Gout, unspecified; F32.A Depression, unspecified; F41.9 Anxiety disorder, unspecified; E78.00 Pure hypercholesterolemia, unspecified; E11.40 Type 2 diabetes mellitus with diabetic neuropathy, unspecified; F17.220 Nicotine dependence, chewing tobacco, uncomplicated; Z90.89 Acquired absence of other organs; Z95.5 Presence of coronary angioplasty implant and graft; Z98.890 Other specified postprocedural states

== ENCOUNTER 2025-02-26 13:33 | Emergency (ER) | payer OTHER ==
[~2025-02-26] VITALS: Ht 165.1 cm; Wt 108.9 kg
[~2025-02-26 13:33] MED LIST changes: +Ondansetron4 MG PO
[2025-02-26 14:16] LABS: BASO % 0.4 % (0.0-1.0); EOS # 0.2 10*3/uL (0.0-0.4); HEMATOCRIT 42.7 % (42.0-52.0); MEAN CELL VOLUME 86.6 fl (80.0-94.0); MEAN CORPUSCULAR HGB 29.4 pg (27.0-31.0); MEAN PLATELET VOLUME 10.8 fl (9.6-12.3); MONO # 0.5 10*3/uL (0.1-1.0); MONO % 5.2 % (3.0-9.0); NEUT # 6.7 10*3/uL (2.3-7.9); NEUT % 70.1 % (47.0-73.0); PLATELET COUNT AUTOMATED 208 10*3/uL (130-400); RED BLOOD COUNT 4.93 10*6/uL (4.50-5.90); RED CELL DISTRI WIDTH 12.9 % (0-14.5); WHITE BLOOD COUNT 9.5 10*3/uL (4.8-10.8)
[2025-02-26 14:26] LABS: ACT PARTIAL THROMBO TIME 23.8 SECONDS (20.0-32.1)
[2025-02-26 14:37] LABS: BUN 13 mg/dl (9-23); CHLORIDE 102 mmol/L (98-107); POTASSIUM 3.8 mmol/L (3.4-5.1)
[2025-02-26] MEDS ORDERED: SODIUM CHLORIDE 0.9% 1,000 ML IV ONE (14:40)
== END 2025-02-26 17:08 | disposition home or self-care (01) ==
LOC: ED 13:33
PROVIDERS: Internal Medicine
DX: R07.89 Other chest pain (principal); E87.20 Acidosis, unspecified; Z53.29 Procedure and treatment not carried out because of patient's decision for other reasons; I10 Essential (primary) hypertension; E11.9 Type 2 diabetes mellitus without complications; F32.A Depression, unspecified; F41.9 Anxiety disorder, unspecified; I25.2 Old myocardial infarction; Z79.4 Long term (current) use of insulin; Z79.899 Other long term (current) drug therapy; Z90.89 Acquired absence of other organs; Z98.890 Other specified postprocedural states

== ENCOUNTER 2025-03-28 20:43 | Emergency (ER) | payer OTHER ==
[~2025-03-28] VITALS: Wt 115.7 kg
[2025-03-28] MEDS ORDERED: DEBROX15 ML OT (21:46)
== END 2025-03-28 21:58 | disposition home or self-care (01) ==
LOC: ED 20:43
DX: H61.21 Impacted cerumen, right ear (principal); H92.02 Otalgia, left ear; F17.220 Nicotine dependence, chewing tobacco, uncomplicated; Z79.899 Other long term (current) drug therapy; Z79.4 Long term (current) use of insulin; Z79.82 Long term (current) use of aspirin; Z90.89 Acquired absence of other organs

== ENCOUNTER → 2025-04-10 | Outpatient (CLI) | payer OTHER ==
[~2025-04-10] MED LIST changes: +DEBROX15 ML OT
[2025-04-10 12:23] LABS: BASO % 0.3 % (0.0-1.0); EOS # 0.3 10*3/uL (0.0-0.4); EOS % 2.6 % (1.0-4.0); HEMATOCRIT 43.1 % (42.0-52.0); MEAN CORPUSCULAR HGB 29.4 pg (27.0-31.0); MEAN PLATELET VOLUME 11.3 fl (9.6-12.3); MONO # 0.5 10*3/uL (0.1-1.0); NEUT % 68.1 % (47.0-73.0); PLATELET COUNT AUTOMATED 233 10*3/uL (130-400); RED BLOOD COUNT 5.13 10*6/uL (4.50-5.90); RED CELL DISTRI WIDTH 12.9 % (0-14.5); WHITE BLOOD COUNT 10.2 10*3/uL (4.8-10.8)
[2025-04-10 12:58] LABS: ALKALINE PHOSPHATASE 74 U/L (46-116); BUN 16 mg/dl (9-23); CHLORIDE 95 mmol/L (98-107); CHOLESTEROL 140 mg/dL (<200); LDL CHOLESTEROL 35 mg/dL (9-159); POTASSIUM 4.4 mmol/L (3.4-5.1); SGPT/ALT 23 U/L (5-49); TOTAL PROTEIN 7.7 gm/dL (6.0-8.0); TRIGLYCERIDES 402 mg/dl (<150)
== END | disposition home or self-care (01) ==
LOC: LAB 11:44
PROVIDERS: ATTEND Nurse Practitioner Family
DX: I49.1 Atrial premature depolarization (principal); Z51.81 Encounter for therapeutic drug level monitoring; F43.10 Post-traumatic stress disorder, unspecified

== ENCOUNTER 2025-11-13 18:37 | Emergency (ER) | payer OTHER ==
[~2025-11-13] VITALS: Ht 182.8 cm; Wt 104.3 kg
[2025-11-13] MEDS ORDERED: Tdap Vaccine 0.5 ML SYR (Adult Vaccine) IM ONE (18:50)
[2025-11-13 18:58] LABS: BASO # 0.1 10*3/uL (0.0-0.1); BASO % 0.5 % (0.0-1.0); EOS # 0.5 10*3/uL (0.0-0.4); EOS % 3.0 % (1.0-4.0); MEAN CELL VOLUME 83.8 fl (80.0-94.0); MEAN CORPUSCULAR HGB 30.5 pg (27.0-31.0); MEAN PLATELET VOLUME 9.6 fl (9.6-12.3); MONO # 0.8 10*3/uL (0.1-1.0); MONO % 5.2 % (3.0-9.0); NEUT # 11.8 10*3/uL (2.3-7.9); NEUT % 78.2 % (47.0-73.0); NUCLEATED RED BLOOD CELL 0.0 % (0.0-0.0); NUCLEATED RED BLOOD CELL 0.0 10*3/uL (0.0-0.0); PLATELET COUNT AUTOMATED 269 10*3/uL (130-400); RED CELL DISTRI WIDTH 12.2 % (0-14.5)
[2025-11-13 19:08] LABS: ACT PARTIAL THROMBO TIME 28.3 SECONDS (20.0-32.1)
[2025-11-13 19:16] LABS: BUN 14 mg/dl (9-23)
[2025-11-13] MEDS ORDERED: CEPHALEXIN500 M1 PO (20:59)
[2025-11-13] MEDS ORDERED: CEPHALEXIN 500 MG 2 CAP ED PACK PO ONE (21:00)
== END 2025-11-13 21:13 | disposition home or self-care (01) ==
LOC: ED 18:37
PROVIDERS: Internal Medicine
DX: S91.102A Unspecified open wound of left great toe without damage to nail, initial encounter (principal); F32.A Depression, unspecified; F41.9 Anxiety disorder, unspecified; I25.2 Old myocardial infarction; E11.9 Type 2 diabetes mellitus without complications; I10 Essential (primary) hypertension; M10.9 Gout, unspecified; K21.9 Gastro-esophageal reflux disease without esophagitis; Z90.89 Acquired absence of other organs; Z79.01 Long term (current) use of anticoagulants; X58.XXXA Exposure to other specified factors, initial encounter; Y93.89 Activity, other specified; Y92.89 Other specified places as the place of occurrence of the external cause; Y99.8 Other external cause status